=== PATIENT | male | born 1975 | race Caucasian/White ===

== ENCOUNTER 2025-01-30 13:04 | Observation (INO) | payer MEDICAID, SELFPAY ==
[2025-01-30 13:10] VITALS: BP 158/102; PULSE 89; RESP 20; TEMP 36.4; O2SAT 97
--- NOTE | 2025-01-30 13:34 | DI.CT_ITS ---
Exam(s) CT NECK W EXAM: CT NECK W INDICATION: severe abscess posterior neck. COMPARISON: No exams were available for comparison TECHNIQUE: FINDINGS: VISUALIZED PARANASAL SINUSES: There is a small defect in the medial wall of the left maxillary sinus possibly postsurgical. There is also mucosal thickening without a layering fluid level throughout the left maxillary sinus. There is a post inflammatory retention cyst in the right maxillary sinus. Also no fluid level therein. Sphenoid sinuses and frontal sinuses are clear. Mild opacification of a few ethmoidal air cells. NASOPHARYNX: Unremarkable ORODENTAL: Unremarkable. OROPHARYNX: Unremarkable. No masses evident. HYPOPHARYNX: Unremarkable. Valleculae and epiglottis and aryepiglottic folds appear normal. VOCAL CORDS: Unremarkable. No masses evident. Subglottic airway appears unremarkable. THYROID GLAND: Unremarkable. Normal size and no obvious nodules. SALIVARY GLANDS: Unremarkable. No significant findings in the parotid and submandibular glands. LYMPH NODES: Small regional lymph nodes but no gross lymphadenopathy. OTHER: There is a large peripherally enhancing abscess on the posterior right side of the neck at C2-3-4 level which extends from the sub dermis down through the entire subcutaneous layer and through the fascia to the muscular layer. This abscess measures 3 cm wide by 2.6 cm AP by 4.5 cm craniocaudal. Enhancing wall thickness is approximately 5-6 mm. There is no radiopaque foreign body in this region. VISUALIZED LUNG APICES: No significant findings. IMPRESSION: 1. Large abscess on the posterior right side of the neck as described above. This extends from the subdermal level down through to the subcutaneous fat and appears to involve the superficial aspect of the underlying musculature. There is no radiopaque foreign body evident Report called by myself to ER 01/30/2025 at 3:42 p.m. RADIATION DOSE DELIVERED: 310.94mGy.cm Total DLP DATA REPOSITORY: All CT scans at this facility are submitted to the National Radiology Data Registry (NRDR) Dose Index Registry (DIR) with the [employer] ([employer]). RADIATION OPTIMIZATION: All CT scans at this facility use at least one of these dose optimization techniques: automated exposure control; mA and/or kV adjustment per patient size (includes targeted exams where dose is matched to clinical indication); or iterative reconstruction.
[2025-01-30] MEDS: LORazepam 1 MG TAB PO (14:08)
[2025-01-30] MEDS: Lidocaine/Epinephri/Tetracaine Topical Gel 3 ML TP (14:08)
[2025-01-30 14:10] LABS: Abs Immature Grans 0.07 10^3/uL (0.0-0.06); HCT 38.8 % (40.0-50.0); HGB 12.7 g/dL (13.5-17.5); Immature Grans % 0.4 %; MCH 27.0 pg (27.0-33.0); MCHC 32.7 % (32.0-36.0); MCV 82 fL (80-95); MPV 8.9 fL (8.0-11.0); Platelet Count 353 10^3/uL (130-400); RBC 4.71 10^6/uL (4.36-5.78); RDW 14.0 % (11.8-14.1); RDW-SD 42.0 fL; WBC 19.25 10^3/uL (4.4-10.8)
[2025-01-30] MEDS: Normal Saline Flush 10 ML SYR IVP ×2 (14:13→16:33)
[2025-01-30] MEDS: Normal Saline - Diluent 50 ML VIAL IJ (14:13)
[2025-01-30] MEDS: Omnipaque 350 MG/ML 100 ML BTL IJ (14:13)
[2025-01-30] MEDS: VANCOMYCIN/WATER (PEG) 1.5 GM/300 ML BAG IVPB (14:16)
[2025-01-30 14:28] LABS: ALT 14 U/L (10-49); AST 17 U/L (<34); Albumin 4.5 g/dL (3.4-5.0); Alkaline Phosphatase 80 U/L (46-116); Anion Gap 9.3 mmol/L (3-11); BUN 16 mg/dL (9-23); Bilirubin, Total 0.60 mg/dL (0.2-1.2); CO2 26.7 mmol/L (20.0-31.0); Calcium 9.3 mg/dL (8.3-10.6); Chloride 106 mmol/L (98-107); Glucose 131 mg/dL (74-106); Potassium 3.4 mmol/L (3.5-5.1); Sodium 142 mmol/L (136-145); Total Protein 7.4 g/dL (5.7-8.2)
--- NOTE | 2025-01-30 14:39 | ED.GENADUL_ITS ---
Discharge Plan Disposition Patient Disposition: Admit to [facility] Condition: Serious Discharge Details Clinical Impression: Abscess, neck ED Provider: David Weber Home Meds and New Rx's Prescriptions: No Action No Known Home Meds HPI General Mode of arrival: ambulatory . Date/Time Provider Initiated Documentation: 01/30/25 13:21 . Limitations to Documentation: no limitations . Information obtained by: patient . HPI Narrative: HISTORY OF PRESENT ILLNESS 50-year-old male with neck abscess, first noticed 3 days ago, initially thought to be an ingrown hair. Abscess draining since yesterday. No known antibiotic allergies. History of childhood staphylococcal infection. No other medical conditions, including diabetes. Related Data Home Medications ?Medication ?Instructions ?Recorded ?Confirmed Unknown [No Known Home Meds] 01/30/25 1 04/01/24 General Stated Complaint: RashLesion SHASHI: 4 Review of Systems All systems reviewed & are unremarkable except as noted in HPI and below Constitutional Constitutional: Denies fever(s) Exam Const General: cooperative and no acute distress HENMT Mouth: moist mucous membranes Eyes Conjunctivae: normal conjunctivae Sclera: normal sclerae Neck Neck: full ROM Resp Auscultation: clear to auscultation bilaterally, no rales, no rhonchi and no wheezes Cardio Rate: regular rate and not tachycardic Rhythm: regular rhythm GI Palpation: soft, not firm, no guarding, no masses, not rigid and nontender Skin Other: Large abscess posterior right neck draining some pus Multiple excoriations/superficial ulcers on his hands Neuro General: patient alert, patient awake and tone normal Extrem General: no edema Course Vital Signs Vital signs: Vital Signs Temperature 36.4 C 01/30/25 13:10 Pulse 89 01/30/25 13:10 Respiratory Rate 20 01/30/25 13:10 Blood Pressure 158/102 H 01/30/25 13:10 Pulse Oximetry 97 01/30/25 13:10 Temperature 36.4 C 01/30/25 13:10 Temperature Source Tympanic 01/30/25 13:10 Pulse 89 01/30/25 13:10 Respiratory Rate 20 01/30/25 13:10 Blood Pressure 158/102 H 01/30/25 13:10 Blood Pressure Position Sitting 01/30/25 13:10 Pulse Oximetry 97 01/30/25 13:10 Oxygen Delivery Method Room Air 01/30/25 13:10 Oxygen Flow Rate 0 01/30/25 13:10 Pain Level 10 01/30/25 13:10 Comment Pt reports pain is pressure and is increasing. 01/30/25 13:10 Lab/Test Results Lab/Test Results: 01/30/25 13:54 Blood Blood Culture - Pending 01/30/25 13:26 Blood Blood Culture - Pending Laboratory Tests Range/Units 01/30/25 13:54 WBC (4.4-10.8) 10^3/uL 19.25 H RBC (4.36-5.78) 10^6/uL 4.71 Hgb (13.5-17.5) g/dL 12.7 L Hct (40.0-50.0) % 38.8 L MCV (80-95) fL 82 MCH (27.0-33.0) pg 27.0 MCHC (32.0-36.0) % 32.7 RDW (11.8-14.1) % 14.0 Plt Count (130-400) 10^3/uL 353 MPV (8.0-11.0) fL 8.9 Immature Gran % % 0.4 Neutrophils % % 77.9 Lymphocytes % % 12.1 Monocytes % % 7.4 Eosinophils % % 1.8 Basophils % % 0.4 Nucleated RBC % (0.0-0.3) % 0.0 Absolute Neutrophils (1.2-6.7) 10^3/uL 15.00 H Absolute Lymphocytes (1.2-3.4) 10^3/uL 2.33 Absolute Monocytes (0.1-0.8) 10^3/uL 1.42 H Absolute Eosinophils (0.0-0.7) 10^3/uL 0.35 Absolute Basophils (0.0-0.2) 10^3/uL 0.08 Sodium (136-145) mmol/L 142 Potassium (3.5-5.1) mmol/L 3.4 L Chloride (98-107) mmol/L 106 Carbon Dioxide (20.0-31.0) mmol/L 26.7 Anion Gap (3-11) mmol/L 9.3 BUN (9-23) mg/dL 16 Creatinine (0.73-1.18) mg/dL 0.7 L Est GFR (CKD-EPI 2020) (mL/min/1.73m2) 114.63 Glucose (74-106) mg/dL 131 H Calcium (8.3-10.6) mg/dL 9.3 Total Bilirubin (0.2-1.2) mg/dL 0.60 AST (<34) U/L 17 ALT (10-49) U/L 14 Alkaline Phosphatase (46-116) U/L 80 Total Protein (5.7-8.2) g/dL 7.4 Albumin (3.4-5.0) g/dL 4.5 Procedure Abscess Drainage Date of Procedure: 01/30/25 Time of Procedure: 15:29 Provider that performed the procedure: David Weber Patient Consented: Verbally Location of Exam: Neck/right side Ultrasound: Used/Image Saved Complications: None Procedure Description Note: 2 small incisions made superficially into areas of fluctuance, small purulent drainage Medical Decision Making ASSESSMENT AND PLAN 50-year-old male here with neck abscess. Patient is hypertensive. Afebrile. Patient has history of staph infections in the past. ED Course: -- Labs reviewed and significant leukocytosis of 19,000 noted. -- Vancomycin IV initiated. -- CT of the neck was interpreted by radiology: There is a large peripherally enhancing abscess on the posterior right side of the neck at C2-3-4 level which extends from the sub dermis down through the entire subcutaneous layer and through the fascia to the muscular layer. This abscess measures 3 cm wide by 2.6 cm AP by 4.5 cm craniocaudal. Enhancing wall thickness is approximately 5-6 mm. There is no radiopaque foreign body in this region. -- Incision and drainage performed under ultrasound guidance. No large focal collection. -- I spoke with the hospitalist, discussed ED presentation course, he will admit the patient for further diagnostics and treatment. Final Assessment: Neck abscess, significant size, minor drainage. Recommend hospitalization for IV antibiotics. Ultrasound for fluid assessment, incision planned if fluid detected. Numbing medicine applied, anxiety medication provided. Clinical Impression: Neck abscess. Disposition: Hospitalization for IV antibiotics. This document was written with the assistance of PRIYANK Almonte. The patient consented to its use. Lab Data Lab results reviewed: Yes I reviewed the patient's lab results. Labs: 01/30/25 14:51 Head - Back Wound Culture - Pending 01/30/25 14:51 Head - Back Gram Stain - Pending 01/30/25 13:54 Blood Blood Culture - Pending 01/30/25 13:26 Blood Blood Culture - Pending Laboratory Tests Range/Units 01/30/25 13:54 WBC (4.4-10.8) 10^3/uL 19.25 H RBC (4.36-5.78) 10^6/uL 4.71 Hgb (13.5-17.5) g/dL 12.7 L Hct (40.0-50.0) % 38.8 L MCV (80-95) fL 82 MCH (27.0-33.0) pg 27.0 MCHC (32.0-36.0) % 32.7 RDW (11.8-14.1) % 14.0 Plt Count (130-400) 10^3/uL 353 MPV (8.0-11.0) fL 8.9 Immature Gran % % 0.4 Neutrophils % % 77.9 Lymphocytes % % 12.1 Monocytes % % 7.4 Eosinophils % % 1.8 Basophils % % 0.4 Nucleated RBC % (0.0-0.3) % 0.0 Absolute Neutrophils (1.2-6.7) 10^3/uL 15.00 H Absolute Lymphocytes (1.2-3.4) 10^3/uL 2.33 Absolute Monocytes (0.1-0.8) 10^3/uL 1.42 H Absolute Eosinophils (0.0-0.7) 10^3/uL 0.35 Absolute Basophils (0.0-0.2) 10^3/uL 0.08 Sodium (136-145) mmol/L 142 Potassium (3.5-5.1) mmol/L 3.4 L Chloride (98-107) mmol/L 106 Carbon Dioxide (20.0-31.0) mmol/L 26.7 Anion Gap (3-11) mmol/L 9.3 BUN (9-23) mg/dL 16 Creatinine (0.73-1.18) mg/dL 0.7 L Est GFR (CKD-EPI 2020) (mL/min/1.73m2) 114.63 Glucose (74-106) mg/dL 131 H Calcium (8.3-10.6) mg/dL 9.3 Total Bilirubin (0.2-1.2) mg/dL 0.60 AST (<34) U/L 17 ALT (10-49) U/L 14 Alkaline Phosphatase (46-116) U/L 80 Total Protein (5.7-8.2) g/dL 7.4 Albumin (3.4-5.0) g/dL 4.5 PFSH All Active Problems (Updated 01/30/25 @ 14:57 by David Weber MD) Abscess, neck (Acute) Social History Smoking/Tobacco Use Status: Current every day Tobacco Type: cigarettes Years smoked: 30 Tobacco: How many years used: 30 Smoking risk assessment performed?: Yes Alcohol Intake: former Drug use: Occasionally Substance use type: marijuana and crack/cocaine Details: Reports last use of cocaine was a few days ago and marijuana was about 2 weeks ago POCUS Exam (ED) Limited Soft Tissue Exam DATE OF EXAM: 01/30/25 TIME OF EXAM: 15:28 PROVIDER THAT PERFORMED THE STUDY: David Weber IS THIS A REPEAT EXAM DURING THIS ENCOUNTER: No LOCATION OF EXAM: Neck/right side REASON FOR EXAM: Abscess VISUALIZED STRUCTURES: Skin and Subcutaneous tissue PERTINENT FINDINGS/IMPRESSION: Abscess rt neck posteriorly . Exam Complete DIFFERENTIAL DIAGNOSES: abscess
[2025-01-30 14:49] VITALS: BP 181/90; PULSE 89; TEMP 34.5; O2SAT 95
--- NOTE | 2025-01-30 15:09 | DI.VRAD_ITS ---
PROCEDURE INFORMATION: Exam: CT Neck With Contrast Exam date and time: 01/30/2025 2:15 PM Age: 50 years old Clinical indication: Other: Severe abscess posterior neck TECHNIQUE: Imaging protocol: Computed tomography of the neck with contrast. Contrast material: OMNIPAQUE 350; Contrast volume: 100 ml; Contrast route: INTRAVENOUS (IV); COMPARISON: No relevant prior studies available. FINDINGS: Paranasal sinuses: There are retention cysts in the maxillary sinus bilaterally with moderate left-sided mucoperiosteal thickening. Salivary glands: Normal. Glands are normal in size. Pharynx: Unremarkable. No significant tonsillar enlargement. Larynx: Unremarkable. Epiglottis is normal. Thyroid: Normal. No enlarged or calcified nodules. Trachea: Visualized trachea is unremarkable. Lungs: Unremarkable as visualized. Lymph nodes: Unremarkable. No lymphadenopathy. Bones/joints: Unremarkable. No acute fracture. Soft tissues: At the C2-4 level in the right posterior subcutaneous tissues there is a thick-walled peripherally enhancing low-density lobular collection measuring 2.7 x 1.9 x 2.8 cm. There is adjacent induration and soft tissue stranding with skin thickening. Appearance is consistent with subcutaneous abscess. Necrotic neoplasm would be less likely consideration. The collection abuts the paraspinous musculature without definite involvement. IMPRESSION: Right posterior neck superficial abscess. No additional acute abnormality seen. Dictated and Authenticated by: Mora Peace MD. Orderin Tia Hernandez MD
--- NOTE | 2025-01-30 15:51 | HPE_ITS ---
Date of service: 01/30/25 Time of Service: 15:51 Assessment and Plan Assessment and plan (1) Abscess, neck: Status: Acute Assessment and plan: Neck abscess (significant size, minor drainage) Plan: * Observation on medical floor on hospitalist service for IV antibiotics (Vancomycin initiated in ED) * Monitor for sepsis, ongoing drainage, pain control, and hypertension * Ultrasound for fluid reassessment; repeat incision if collection persists; surgical consult * Labs: blood cultures, wound cultures pending * Supportive care and anxiety management as needed (2) Nicotine addiction: Status: Acute Assessment and plan: 30 years Offer nicotine patch (3) Crack cocaine use: Status: Acute Assessment and plan: Last use a few days ago (4) Marijuana abuse: Status: Acute Assessment and plan: Last use 2 weeks ago History of Present Illness History of Present Illness Chief Complaint: Posterior neck pain; bump for 3 days Narrative: 50-year-old male presents with a neck abscess, first noticed 3 days ago, initially thought to be an ingrown hair. The abscess has been draining since yesterday. He has no known antibiotic allergies and a history of childhood staphylococcal infections. No history of diabetes or other chronic medical conditions. Patient arrived ambulatory, denies fever, and reports increasing pressure pain (12/24). In ED: Laboratory Data: * WBC 19.25 leukocytosis * Hgb 12.7, Hct 38.8 * K 3.4 mild hypokalemia * Glucose 131 * Other labs largely unremarkable * Blood cultures pending * Wound culture and Gram stain pending Imaging: * CT neck: Large posterior right neck abscess at C2?C4, 3 ? 2.6 ? 4.5 cm, extends subcutaneously and through fascia to muscle, no foreign body Procedures: * Ultrasound-guided incision and drainage performed with two small superficial incisions; small purulent drainage; no complications Placed on observation status on the medical floor for further testing and treatment. Will consult surgery 01/31 Patient agrees with plan of care. Patient is a full code. Review of Systems Narrative: Constitutional: Denies fever, otherwise unremarkable. All other systems: Unremarkable except for findings noted in HPI. PFSH All Active Problems (Updated 01/30/25 @ 15:58 by Leslie Ortiz NP) Marijuana abuse (Acute) Crack cocaine use (Acute) Nicotine addiction (Acute) Abscess, neck (Acute) Social History Smoking/Tobacco Use Status: Current every day Tobacco Type: cigarettes Years smoked: 30 Tobacco: How many years used: 30 Smoking risk assessment performed?: Yes Alcohol Intake: former Drug use: Occasionally Substance use type: marijuana and crack/cocaine Details: Reports last use of cocaine was a few days ago and marijuana was about 2 weeks ago Meds Allergies and Home Medications Home Medications ?Medication ?Instructions ?Recorded ?Confirmed ?Type Unknown [No Known Home Meds] 01/30/25 1 04/01/24 History Exam Narrative Exam Narrative: General: Cooperative, no acute distress Neck: Full range of motion; large posterior right neck abscess draining pus Skin: Multiple excoriations/superficial ulcers on hands Respiratory: Clear bilaterally, no rales, rhonchi, or wheezes Cardiac: Regular rate and rhythm GI: Soft, non-tender, non-distended Neuro: Alert, normal tone Extremities: No edema Results Labs 01/30/25 13:54 01/30/25 13:54 Labs: Laboratory Results - last 24 hr 01/30/25 13:54 WBC 19.25 H RBC 4.71 Hgb 12.7 L Hct 38.8 L MCV 82 MCH 27.0 MCHC 32.7 RDW 14.0 Plt Count 353 MPV 8.9 Immature Gran % 0.4 Neutrophils % 77.9 Lymphocytes % 12.1 Monocytes % 7.4 Eosinophils % 1.8 Basophils % 0.4 Nucleated RBC % 0.0 Absolute Neutrophils 15.00 H Absolute Lymphocytes 2.33 Absolute Monocytes 1.42 H Absolute Eosinophils 0.35 Absolute Basophils 0.08 Sodium 142 Potassium 3.4 L Chloride 106 Carbon Dioxide 26.7 Anion Gap 9.3 BUN 16 Creatinine 0.7 L Est GFR (CKD-EPI 2020) 114.63 Glucose 131 H Calcium 9.3 Total Bilirubin 0.60 AST 17 ALT 14 Alkaline Phosphatase 80 Total Protein 7.4 Albumin 4.5 Last Vital Signs Temp 34.5 C L 01/30/25 14:49 Pulse 89 01/30/25 14:49 Resp 20 01/30/25 13:10 BP 181/90 H 01/30/25 14:49 Pulse Ox 95 01/30/25 14:49 Time Spent Time spent with Patient: 40-54 minutes Time was spent: preparing to see the patient(eg.review tests), obtaining and/or reviewing separately otained hiistory, ordering medications,tests, procedures, referring, communicating with other health memory care program resident, indepentently interpreting results, counseling the patient and care coordination
--- NOTE | 2025-01-30 16:13 | W.PC.ACHO ---
Registration Status: REG ER Primary Language: Preferred Language: ED Information & Data Chief Complaint RashLesion 01/30/25 14:44 Triage Note Pt noted what he thought was 01/30/25 13:10 an ingrown hair on the back of his neck 4 days ago and yesterday it began getting larger and more painful. Pt reports a friend attempted to pop it yesterday, it did open with some fluid coming out. Most Recent Vital Signs Temperature 34.5 C L 01/30/25 14:49 Temperature Source Oral 01/30/25 14:49 Pulse 89 01/30/25 14:49 Respiratory Rate 20 01/30/25 13:10 Blood Pressure 181/90 H 01/30/25 14:49 Blood Pressure Mean 120 01/30/25 14:49 Blood Pressure Position Sitting 01/30/25 13:10 Pulse Oximetry 95 01/30/25 14:49 Oxygen Delivery Method Room Air 01/30/25 14:49 Oxygen Flow Rate 0 01/30/25 14:49 Pain Level 10 01/30/25 13:10 Comment Pt reports pain is pressure and is increasing. 01/30/25 13:10 Allergies No Known Allergies Allergy (Unverified 01/30/25 16:07) Precautions Isolation Standard precaution 01/30/25 13:16 Active Medications Generic Name Dose Route Start Last Admin Trade Name Christy PRN Reason Stop Dose Admin Iohexol 100 ml 01/30/25 14:15 01/30/25 14:13 Omnipaque 350 Mg/Ml 100 Ml Btl IJ 03/01/25 23:59 100 ml DIRECTED JULIUS Administration Sodium Chloride 0 ml 01/30/25 14:12 01/30/25 14:13 Normal Saline Flush 10 Ml Syr IVP 10 ml PRN PRN Administration Sodium Chloride 50 ml 01/30/25 14:15 01/30/25 14:13 Normal Saline - Diluent 50 Ml Vial IJ 50 ml DIRECTED JULIUS Administration IV IV Catheter Type [Right Peripheral IV Antecubital] IV Catheter Gauge [Right 18 Antecubital] Diagnostics 01/30/25 Range/Units 13:54 WBC 19.25 H (4.4-10.8) 10^3/uL RBC 4.71 (4.36-5.78) 10^6/uL Hgb 12.7 L (13.5-17.5) g/dL Hct 38.8 L (40.0-50.0) % MCV 82 (80-95) fL MCH 27.0 (27.0-33.0) pg MCHC 32.7 (32.0-36.0) % RDW 14.0 (11.8-14.1) % Plt Count 353 (130-400) 10^3/uL MPV 8.9 (8.0-11.0) fL Immature Gran % 0.4 % Neutrophils % 77.9 % Lymphocytes % 12.1 % Monocytes % 7.4 % Eosinophils % 1.8 % Basophils % 0.4 % Nucleated RBC % 0.0 (0.0-0.3) % Absolute Neutrophils 15.00 H (1.2-6.7) 10^3/uL Absolute Lymphocytes 2.33 (1.2-3.4) 10^3/uL Absolute Monocytes 1.42 H (0.1-0.8) 10^3/uL Absolute Eosinophils 0.35 (0.0-0.7) 10^3/uL Absolute Basophils 0.08 (0.0-0.2) 10^3/uL Sodium 142 (136-145) mmol/L Potassium 3.4 L (3.5-5.1) mmol/L Chloride 106 (98-107) mmol/L Carbon Dioxide 26.7 (20.0-31.0) mmol/L Anion Gap 9.3 (3-11) mmol/L BUN 16 (9-23) mg/dL Creatinine 0.7 L (0.73-1.18) mg/dL Est GFR (CKD-EPI 2020) 114.63 (mL/min/1.73m2) Glucose 131 H (74-106) mg/dL Calcium 9.3 (8.3-10.6) mg/dL Total Bilirubin 0.60 (0.2-1.2) mg/dL AST 17 (<34) U/L ALT 14 (10-49) U/L Alkaline Phosphatase 80 (46-116) U/L Total Protein 7.4 (5.7-8.2) g/dL Albumin 4.5 (3.4-5.0) g/dL 01/30/25 14:10 Wound Culture - Pending Head - Back Gram Stain - Final 01/30/25 13:54 Blood Culture - Pending Blood 01/30/25 13:26 Blood Culture - Pending Blood Intake and Output - 24 Hour Total 01/30/25 13:04 thru 01/30/25 16:00 Intake Total 300 Balance 300 Weight 79.379 kg Intake: IV 300 Falls Risk Assessment History of Falls No History 01/30/25 13:16 Contributing Factors No Factors 01/30/25 13:16 Ambulatory Aids Independent 01/30/25 13:16 Tubes/Lines None 01/30/25 13:16 Gait Evaluation No gait disturbance 01/30/25 13:16 Cognition No cognitive impairment 01/30/25 13:16 Fall Total Score 0 01/30/25 13:16 Level of Risk Standard/Low Risk 01/30/25 13:16 Problems (Last Reviewed 01/30/25 @ 14:41 by David Weber MD) Marijuana abuse (Acute) Crack cocaine use (Acute) Nicotine addiction (Acute) Abscess, neck (Acute) Attestation Statement: By documenting the first initial, last name, and credentials of the reporting nurse below, both parties acknowledge that all relevant information regarding the patient handoff has been communicated, and that all questions have been addressed to ensure continuity and safety of care. Additional Patient Information/Comments: pt going to room 231. All questions answered. Report Received From: report from HAYDEE Stewart @ [id number]
[2025-01-30 16:20] VITALS: BP 172/94; PULSE 80; RESP 18; TEMP 37; O2SAT 98
[2025-01-30] MEDS: Acetaminophen 325 MG TAB 650 MG PO (16:33)
[2025-01-30] MEDS: Ketorolac 15 MG/ML VIAL IVP (17:57)
[2025-01-30 18:19] LABS: Cannabinoids THC Negative (Negative)
[2025-01-30 20:22] VITALS: BP 130/63; PULSE 70; RESP 15; TEMP 37.2; O2SAT 98
[2025-01-31 04:24] LABS: Vancomycin, Random 4.2 ug/mL
[2025-01-31 04:26] VITALS: BP 161/95; PULSE 76; RESP 16; TEMP 37.2; O2SAT 98
[2025-01-31] MEDS: VANCOMYCIN 1,000 MG in Normal Saline 250 ML 166.6666 MG IVPB (05:40)
[2025-01-31] MEDS: Water,Injection,Sterile 10 ML VIAL (05:46)
[2025-01-31] MEDS: Acetaminophen 325 MG TAB 650 MG PO (06:56)
[2025-01-31] MEDS: Ketorolac 15 MG/ML VIAL IVP ×2 (06:57→16:07)
[2025-01-31] MEDS: Normal Saline Flush 10 ML SYR IVP ×4 (06:58→21:46)
[2025-01-31 07:59] VITALS: BP 119/80; PULSE 71; RESP 17; TEMP 36.8; O2SAT 97
[2025-01-31 09:29] LABS: Abs Immature Grans 0.05 10^3/uL (0.0-0.06); HCT 36.6 % (40.0-50.0); HGB 12.1 g/dL (13.5-17.5); Immature Grans % 0.3 %; MCH 27.3 pg (27.0-33.0); MCHC 33.1 % (32.0-36.0); MCV 82 fL (80-95); MPV 8.8 fL (8.0-11.0); Platelet Count 329 10^3/uL (130-400); RBC 4.44 10^6/uL (4.36-5.78); RDW 13.7 % (11.8-14.1); RDW-SD 41.3 fL; WBC 14.29 10^3/uL (4.4-10.8)
[2025-01-31 09:48] LABS: C-Reactive Protein 4.07 mg/dL (<=0.50)
[2025-01-31 09:50] LABS: ALT 9 U/L (10-49); AST 12 U/L (<34); Albumin 3.7 g/dL (3.4-5.0); Alkaline Phosphatase 66 U/L (46-116); Anion Gap 7.3 mmol/L (3-11); BUN 14 mg/dL (9-23); Bilirubin, Total 0.50 mg/dL (0.2-1.2); CO2 24.7 mmol/L (20.0-31.0); Calcium 8.5 mg/dL (8.3-10.6); Chloride 107 mmol/L (98-107); Glucose 100 mg/dL (74-106); Potassium 3.8 mmol/L (3.5-5.1); Sodium 139 mmol/L (136-145); Total Protein 6.2 g/dL (5.7-8.2)
[2025-01-31 12:08] VITALS: BP 141/97; PULSE 66; RESP 17; TEMP 36.4; O2SAT 97
--- NOTE | 2025-01-31 12:22 | W.NUTRFU ---
Date of service: 01/31/25 Time of Service: 12:22 Nutrition Note NOTE: Pt chart reviewed and initially assessed as lower acute nutrition risk. Tolerating regular diet - will be npo at midnight to address neck abscess in morning for sugical intervention (I&D). Will monitor diet toleration, nutrition related labs, po intake. Kitchen staff to get meal preferences and support with a variety of healthy food options. Time Spent in Nutritional Counseling and Treatment: 0
--- NOTE | 2025-01-31 13:03 | PDOC.CMIN ---
Date of service: 01/31/25 Time of Service: 13:03 Care Management Initial Assmt Initial Assessment Reason for Hospitalization: abscess of the neck Functional Status/Living Situation Patient Presentation: Lj presented to the ED yesterday afternoon with c/o a neck abscess that he first noticed 3 days ago, thinking it was an ingrown hair. It started draining 2 days ago, and he presented tot he ED yesterday. Surgery consult was done and Bryan will go to the OR tomorrow morning for incision and drainage. He is presently on IV vancomycin for his infection, and both blood and wound cultures are pending. Bryan was sitting up in the bed, watching TV, when CM met with him today. He was very pleasant and polite with CM. He stated that his neck is very sore, and he is mad at himself for letting it get this bad. He is also mad at himself for letting his life go the way it has. Bryan is living in a camper. 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 He lost custody of his kid. Bryan has no health insurance. [facility] was contacted on Bryan's behalf, and he was also given the patient assistance packet. Bryan was very appreciative of this help. Bryan has no PCP listed, but he does see Adilson Montejo at [facility] in [place]. It was confirmed by CM that Bryan is an active patient there, although he has not been there in a bit. This info was relayed to Bryan, and he was very strongly encouraged to f/u with that office. He assured CM he would f/u, I don't want to end up like this again. Bryan will likely need help with wound care, as he will not be able to have home health services due to not having insurance. He is actively trying to recruit some help from friends for this job. Town of Residence: [place] Resides with: Alone (alone) Significant Other/Family: Local (brother, Adam, daughter, Lana, friend Kevon) Natural Supports: best support is his friend Kevon Employment Status: Unemployed Instrumental Activities of Daily Living (ADLs): Independent Medications Medication Management: No Issues/Barriers identified Advance Directives Advance Directives: Do you have an Advance Directive: AD On File at [facility]: N Today, 04:49 Date Asked 01/30/25 01/30/25, 13:24 AD Date Reviewed COLST On File at [facility] COLST Date Scanned Code Status Resuscitation Status Full Code Insurance Coverage/Financial Issues Insurance: self pay - see above Care Team Visit Care Team Role Provider Type Leslie Ortiz NP MD [facility] STAFF PHYSICIAN Unknown Unknown Primary Care Provider STAFF PHYSICIAN Afshin Du MD Other Providers [facility] STAFF PHYSICIAN David Weber MD Emergency Provider [facility] STAFF PHYSICIAN Reggie Troncoso Admit Provider [facility] STAFF PHYSICIAN Attending Provider Other: PCP is Adilson Montejo MD at [facility] in [place], [place] [phone] Discharge Potential Discharge Needs: PCP F/U Appt, Surgical F/U Appt and Other (wound care supplies) Anticipated Barriers to Discharge: None Identified Patient/Family Education Needs: Review discharge instructions, discuss Ask Me Three Transportation: Private vehicle Plan: Bryan will be going to the OR tomorrow for incision and drainage of his neck abscess. He is hoping to be discharge tomorrow after the surgery. Bryan will need to f/u with his PCP and the surgeon. He will require help with wound care, as he is unable to visualize the site, and he believes his friend will do that. Bryan will continue per his plan of care and transport home with a friend. CM will continue to follow. Social Determinants of Health Screening Will the Patient Participate in the Screening?: Declined to provide PFSH All Active Problems (Updated 01/30/25 @ 15:58 by Leslie Ortiz NP) Marijuana abuse (Acute) Crack cocaine use (Acute) Nicotine addiction (Acute) Abscess, neck (Acute) Social History Smoking/Tobacco Use Status: Current every day Tobacco Type: cigarettes Years smoked: 30 Tobacco: How many years used: 30 Smoking risk assessment performed?: Yes Alcohol Intake: former Drug use: Occasionally Substance use type: marijuana and crack/cocaine Details: Reports last use of cocaine was a few days ago and marijuana was about 2 weeks ago Housing: other
--- NOTE | 2025-01-31 13:08 | W.SURGCON ---
Date of service: 01/31/25 Time of Service: 10:30 Assessment and Plan Assessment and plan (1) Abscess, neck: Status: Acute Assessment and plan: There is a soft tissue infection at the base of the right neck that seems consistent with an abscess. It does not appear to be adequately drained at this time. Although his decreasing leukocytosis is reassuring, I think this would benefit from incision and drainage with operative debridement. Will make arrangements for the operating room tomorrow History of Present Illness History of Present Illness Chief Complaint: Neck abscess Narrative: Lj is 50 years old. He came to the emergency department complaining of swelling and drainage from the posterior right neck. He thinks it first noticed it a few days ago, and attributed to an ingrown hair. It became more painful, and he tried to have a friend drain it out. As best he can recall, nothing actually came out of it. He went to the emergency department yesterday, where he was found to have a leukocytosis around 20,000. He underwent a CT scan of the neck that demonstrated a 4-1/2 x 3 cm abscess extending down to the muscular layer. He underwent attempted ultrasound-guided drainage of the abscess in the emergency department. He recalls that this was quite painful. Has been feeling a little bit better since he has been admitted. He is already started on vancomycin for his soft tissue infection. He tells me he does not have any other significant medical history. He has never had any other skin abscesses. Review of Systems Constitutional Constitutional: Denies fatigue, Denies fever(s), Denies weakness and Denies weight loss Eyes Eyes: Reports system reviewed and no additional complaints, except as documented ENT Ears, Nose, Mouth, and Throat: Reports system reviewed and no additional complaints, except as documented Cardiovascular Cardiovascular: Denies chest pain and Denies dyspnea Respiratory Respiratory: Denies chest congestion, Reports cough and Denies dyspnea Gastrointestinal Gastrointestinal: Reports system reviewed and no additional complaints, except as documented Genitourinary Genitourinary: Reports system reviewed and no additional complaints, except as documented Neurologic Neurologic: Denies weakness Endocrine Endocrine: Denies fatigue Hematologic/Lymphatic Hematologic/Lymphatic: Denies easy bleeding and Denies easy bruising PFSH All Active Problems (Updated 01/30/25 @ 15:58 by Leslie Ortiz NP) Marijuana abuse (Acute) Crack cocaine use (Acute) Nicotine addiction (Acute) Abscess, neck (Acute) Social History Smoking/Tobacco Use Status: Current every day Tobacco Type: cigarettes Years smoked: 30 Tobacco: How many years used: 30 Smoking risk assessment performed?: Yes Alcohol Intake: former Drug use: Occasionally Substance use type: marijuana and crack/cocaine Details: Reports last use of cocaine was a few days ago and marijuana was about 2 weeks ago Housing: other Exam Const General: cooperative, comfortable and no acute distress Orientation: alert, awake and oriented x3 HENMT Head: normal to inspection Head images:  1. Erythema with purulent drainage Eyes General: appearance normal, both eyes and all related structures Neck Neck: full ROM and lymphadenopathy noted Resp Effort & Inspection: normal respiratory effort, able to speak in complete sentences and no cough Cardio Rate: regular rate Rhythm: regular rhythm Heart Sounds: S1 normal and S2 normal Results Last Vital Signs Temp 97.5 F L 01/31/25 12:08 Pulse 66 01/31/25 12:08 Resp 17 01/31/25 12:08 BP 141/97 H 01/31/25 12:08 Pulse Ox 97 01/31/25 12:08 Labs 01/31/25 09:11 01/31/25 09:11 Labs: Laboratory Results - last 24 hr 01/30/25 01/30/25 01/31/25 13:54 14:55 04:00 WBC 19.25 H RBC 4.71 Hgb 12.7 L Hct 38.8 L MCV 82 MCH 27.0 MCHC 32.7 RDW 14.0 Plt Count 353 MPV 8.9 Immature Gran % 0.4 Neutrophils % 77.9 Lymphocytes % 12.1 Monocytes % 7.4 Eosinophils % 1.8 Basophils % 0.4 Nucleated RBC % 0.0 Absolute Neutrophils 15.00 H Absolute Lymphocytes 2.33 Absolute Monocytes 1.42 H Absolute Eosinophils 0.35 Absolute Basophils 0.08 Sodium 142 Potassium 3.4 L Chloride 106 Carbon Dioxide 26.7 Anion Gap 9.3 BUN 16 Creatinine 0.7 L Est GFR (CKD-EPI 2020) 114.63 Glucose 131 H Calcium 9.3 Total Bilirubin 0.60 AST 17 ALT 14 Alkaline Phosphatase 80 C-Reactive Protein Total Protein 7.4 Albumin 4.5 Random Vancomycin 4.2 Urine Opiates Screen Negative Urine Methadone Screen Negative Ur Barbiturates Screen Negative Ur Tricyclics Screen Negative Ur Amphetamines Screen Negative U Benzodiazepines Scrn Negative Urine Cocaine Screen Positive A U Cannabinoids Screen Negative 01/31/25 01/31/25 01/31/25 09:11 09:11 09:11 WBC 14.29 H RBC 4.44 Hgb 12.1 L Hct 36.6 L MCV 82 MCH 27.3 MCHC 33.1 RDW 13.7 Plt Count 329 MPV 8.8 Immature Gran % 0.3 Neutrophils % 67.4 Lymphocytes % 19.0 Monocytes % 9.9 Eosinophils % 3.0 Basophils % 0.4 Nucleated RBC % 0.0 Absolute Neutrophils 9.63 H Absolute Lymphocytes 2.72 Absolute Monocytes 1.41 H Absolute Eosinophils 0.43 Absolute Basophils 0.06 Sodium 139 Cancelled Potassium 3.8 Cancelled Chloride 107 Carbon Dioxide Anion Gap BUN Creatinine Est GFR (CKD-EPI 2020) Glucose Calcium Total Bilirubin AST ALT Alkaline Phosphatase C-Reactive Protein Total Protein Albumin Random Vancomycin Urine Opiates Screen Urine Methadone Screen Ur Barbiturates Screen Ur Tricyclics Screen Ur Amphetamines Screen U Benzodiazepines Scrn Urine Cocaine Screen U Cannabinoids Screen 01/31/25 01/31/25 01/31/25 09:11 09:11 09:11 WBC RBC Hgb Hct MCV MCH MCHC RDW Plt Count MPV Immature Gran % Neutrophils % Lymphocytes % Monocytes % Eosinophils % Basophils % Nucleated RBC % Absolute Neutrophils Absolute Lymphocytes Absolute Monocytes Absolute Eosinophils Absolute Basophils Sodium Potassium Chloride Cancelled Carbon Dioxide 24.7 Cancelled Anion Gap 7.3 Cancelled BUN 14 Creatinine Est GFR (CKD-EPI 2020) Glucose Calcium Total Bilirubin AST ALT Alkaline Phosphatase C-Reactive Protein Total Protein Albumin Random Vancomycin Urine Opiates Screen Urine Methadone Screen Ur Barbiturates Screen Ur Tricyclics Screen Ur Amphetamines Screen U Benzodiazepines Scrn Urine Cocaine Screen U Cannabinoids Screen 01/31/25 01/31/25 01/31/25 09:11 09:11 09:11 WBC RBC Hgb Hct MCV MCH MCHC RDW Plt Count MPV Immature Gran % Neutrophils % Lymphocytes % Monocytes % Eosinophils % Basophils % Nucleated RBC % Absolute Neutrophils Absolute Lymphocytes Absolute Monocytes Absolute Eosinophils Absolute Basophils Sodium Potassium Chloride Carbon Dioxide Anion Gap BUN Cancelled Creatinine 0.8 Cancelled Est GFR (CKD-EPI 2020) 101.50 Cancelled Glucose 100 Calcium Total Bilirubin AST ALT Alkaline Phosphatase C-Reactive Protein Total Protein Albumin Random Vancomycin Urine Opiates Screen Urine Methadone Screen Ur Barbiturates Screen Ur Tricyclics Screen Ur Amphetamines Screen U Benzodiazepines Scrn Urine Cocaine Screen U Cannabinoids Screen 01/31/25 01/31/25 01/31/25 09:11 09:11 09:11 WBC RBC Hgb Hct MCV MCH MCHC RDW Plt Count MPV Immature Gran % Neutrophils % Lymphocytes % Monocytes % Eosinophils % Basophils % Nucleated RBC % Absolute Neutrophils Absolute Lymphocytes Absolute Monocytes Absolute Eosinophils Absolute Basophils Sodium Potassium Chloride Carbon Dioxide Anion Gap BUN Creatinine Est GFR (CKD-EPI 2020) Glucose Cancelled Calcium 8.5 Cancelled Total Bilirubin 0.50 Cancelled AST 12 ALT Alkaline Phosphatase C-Reactive Protein Total Protein Albumin Random Vancomycin Urine Opiates Screen Urine Methadone Screen Ur Barbiturates Screen Ur Tricyclics Screen Ur Amphetamines Screen U Benzodiazepines Scrn Urine Cocaine Screen U Cannabinoids Screen 01/31/25 01/31/25 01/31/25 09:11 09:11 09:11 WBC RBC Hgb Hct MCV MCH MCHC RDW Plt Count MPV Immature Gran % Neutrophils % Lymphocytes % Monocytes % Eosinophils % Basophils % Nucleated RBC % Absolute Neutrophils Absolute Lymphocytes Absolute Monocytes Absolute Eosinophils Absolute Basophils Sodium Potassium Chloride Carbon Dioxide Anion Gap BUN Creatinine Est GFR (CKD-EPI 2020) Glucose Calcium Total Bilirubin AST Cancelled ALT 9 L Cancelled Alkaline Phosphatase 66 Cancelled C-Reactive Protein 4.07 H Total Protein 6.2 Albumin Random Vancomycin Urine Opiates Screen Urine Methadone Screen Ur Barbiturates Screen Ur Tricyclics Screen Ur Amphetamines Screen U Benzodiazepines Scrn Urine Cocaine Screen U Cannabinoids Screen 01/31/25 01/31/25 09:11 09:11 WBC RBC Hgb Hct MCV MCH MCHC RDW Plt Count MPV Immature Gran % Neutrophils % Lymphocytes % Monocytes % Eosinophils % Basophils % Nucleated RBC % Absolute Neutrophils Absolute Lymphocytes Absolute Monocytes Absolute Eosinophils Absolute Basophils Sodium Potassium Chloride Carbon Dioxide Anion Gap BUN Creatinine Est GFR (CKD-EPI 2020) Glucose Calcium Total Bilirubin AST ALT Alkaline Phosphatase C-Reactive Protein Total Protein Cancelled Albumin 3.7 Cancelled Random Vancomycin Urine Opiates Screen Urine Methadone Screen Ur Barbiturates Screen Ur Tricyclics Screen Ur Amphetamines Screen U Benzodiazepines Scrn Urine Cocaine Screen U Cannabinoids Screen Imaging Imaging Studies: CT scan of the neck -report and images reviewed by me
--- NOTE | 2025-01-31 13:37 | PHA.REVIEW2 ---
Pharmacy Admission Review Admission Clinical Review Admission Pharmacy Review: Marijuana abuse (Acute) Crack cocaine use (Acute) Nicotine addiction (Acute) Abscess, neck (Acute) No Known Allergies Allergy (Unverified 01/30/25 16:07) Resuscitation Status Full Code Height 5 ft 10 in Weight 79.379 kg Pharmacy Admission Review Renal Dosing Renal Dosing: BUN 14 mg/dL (9-23) 01/31/25 09:11 BUN Cancelled 01/31/25 09:11 Creatinine 0.8 mg/dL (0.73-1.18) 01/31/25 09:11 Creatinine Cancelled 01/31/25 09:11 Medications needing adjustments: Reviewed (None of the patient's medications need renal dosing adjustments since Crcl >100 with Scr at 0.8mg/dL) Anticoagulation Anticoagulation: Hgb 12.1 g/dL (13.5-17.5) L 01/31/25 09:11 Hct 36.6 % (40.0-50.0) L 01/31/25 09:11 Plt Count 329 10^3/uL (130-400) 01/31/25 09:11 Creatinine 0.8 mg/dL (0.73-1.18) 01/31/25 09:11 Creatinine Cancelled 01/31/25 09:11 DVT Prophylaxis: Reviewed (Patient can self ambulate without difficulty, currently not at risk of DVT. Will need prophylaxis if that changes) Opiate Usage Evaluate Pain Scale/Pains Meds: Reviewed (Level of pain for this patient has reduced from 5 to 2 since yesterday being managed with toradol, no opiates) Relevant Labs Relevant Labs: Sodium 139 mmol/L (136-145) 01/31/25 09:11 Sodium Cancelled 01/31/25 09:11 Potassium 3.8 mmol/L (3.5-5.1) 01/31/25 09:11 Potassium Cancelled 01/31/25 09:11 Chloride 107 mmol/L (98-107) 01/31/25 09:11 Chloride Cancelled 01/31/25 09:11 C-Reactive Protein 4.07 mg/dL (<=0.50) H 01/31/25 09:11 Electrolytes, C-Reactive P, ESR: Reviewed (Electrolytes have improved and currently within normal limits) DM Control DM Control: Reviewed (No record of DM reported in patient's H&P) Cardiac Review Cardiac Review: Blood Pressure 141/97 Blood Pressure 119/80 Blood Pressure 161/95 BP, HR, EF%: Reviewed (Blood pressure still fluctuating, needs monitoring) QTc Review QTc: Reviewed (No EKG or QTc results reported ) Current Meds Current Medication Order Review: Reviewed (No known home medications for this patients per medication rec as of 01/31) Pharmacy Antibiotic Review Relevant Labs: Relevant Labs 01/31/25 09:11 C-Reactive Protein 4.07 H Pharmacy Antibiotic Activity: Abx regimen adjustment and C/S review (Patient started vancomycin from the ED with a 1.5g loading dose. Scheduled maintenance dose per [facility] is 1g every 8 hours with trough monitoring. Preliminary wound culture reported MRSA, trough level ordered before 4th dose tomorrow morning and dosing will be adjusted per level received.)
[2025-01-31] MEDS: VANCOMYCIN/WATER (PEG) 1 GM/200 ML BAG IVPB ×2 (14:59→21:45)
[2025-01-31 15:16] VITALS: BP 158/98; PULSE 68; RESP 16; TEMP 36.9; O2SAT 98
[2025-01-31] MEDS: LORazepam 20 MG/10 ML VIAL IVP (15:38)
[2025-01-31] MEDS: Nicotine 21 MG/24 HR PATCH TD (15:38)
--- NOTE | 2025-01-31 16:16 | PGE_ITS ---
Date of Service Date of service: 01/31/25 Time of Service: 16:16 Assessment and Plan Assessment and plan (1) Abscess, neck: Status: Acute Assessment and plan: Neck abscess (significant size, minor drainage) Plan: * Observation on medical floor on hospitalist service for IV antibiotics - continue Vancomycin * Monitor for sepsis, ongoing drainage, pain control, and hypertension * Surgical consult - will take him to OR for I&D 02/01 NPO after MN * Labs: blood cultures pending; wound cx - MRSA - continue vancomycin * Supportive care and anxiety management as needed (2) Nicotine addiction: Status: Acute Assessment and plan: 30 years Offer nicotine patch (3) Crack cocaine use: Status: Acute Assessment and plan: Last use a few days ago - UDS + for cocaine (4) Marijuana abuse: Status: Acute Assessment and plan: Last use 2 weeks ago - UDS negative for cannabinoids Subjective Subjective Patient reports: no new complaints, pain is less, tolerating liquids well, tolerating a regular diet, voiding w/o difficulty, bowel movement and afebrile; denies diarrhea, nausea, vomiting or shortness of breath Interval history since last seen: Patient states he still has significant pain, he has agreed to I&D tomorrow 02/01 in the OR by surgery. Exam Const General: cooperative and no acute distress HENMT Mouth: moist mucous membranes Eyes Conjunctivae: normal conjunctivae Sclera: normal sclerae Neck Neck: full ROM Resp Auscultation: clear to auscultation bilaterally, no rales, no rhonchi and no wheezes Cardio Rate: regular rate and not tachycardic Rhythm: regular rhythm GI Palpation: soft, not firm, no guarding, no masses, not rigid and nontender Skin Other: Large abscess posterior right neck draining some pus Multiple excoriations/superficial ulcers on his hands Neuro General: patient alert, patient awake and tone normal Extrem General: no edema Objective Last Vital Signs Temp 36.9 C 01/31/25 15:16 Pulse 68 01/31/25 15:16 Resp 16 01/31/25 15:16 BP 158/98 H 01/31/25 15:16 Pulse Ox 98 01/31/25 15:16 Laboratory Results - last 24 hr 01/30/25 01/31/25 01/31/25 14:55 04:00 09:11 WBC 14.29 H RBC 4.44 Hgb 12.1 L Hct 36.6 L MCV 82 MCH 27.3 MCHC 33.1 RDW 13.7 Plt Count 329 MPV 8.8 Immature Gran % 0.3 Neutrophils % 67.4 Lymphocytes % 19.0 Monocytes % 9.9 Eosinophils % 3.0 Basophils % 0.4 Nucleated RBC % 0.0 Absolute Neutrophils 9.63 H Absolute Lymphocytes 2.72 Absolute Monocytes 1.41 H Absolute Eosinophils 0.43 Absolute Basophils 0.06 Sodium 139 Potassium Chloride Carbon Dioxide Anion Gap BUN Creatinine Est GFR (CKD-EPI 2020) Glucose Calcium Total Bilirubin AST ALT Alkaline Phosphatase C-Reactive Protein Total Protein Albumin Random Vancomycin 4.2 Urine Opiates Screen Negative Urine Methadone Screen Negative Ur Barbiturates Screen Negative Ur Tricyclics Screen Negative Ur Amphetamines Screen Negative U Benzodiazepines Scrn Negative Urine Cocaine Screen Positive A U Cannabinoids Screen Negative 01/31/25 01/31/25 01/31/25 09:11 09:11 09:11 WBC RBC Hgb Hct MCV MCH MCHC RDW Plt Count MPV Immature Gran % Neutrophils % Lymphocytes % Monocytes % Eosinophils % Basophils % Nucleated RBC % Absolute Neutrophils Absolute Lymphocytes Absolute Monocytes Absolute Eosinophils Absolute Basophils Sodium Cancelled Potassium 3.8 Cancelled Chloride 107 Cancelled Carbon Dioxide 24.7 Anion Gap BUN Creatinine Est GFR (CKD-EPI 2020) Glucose Calcium Total Bilirubin AST ALT Alkaline Phosphatase C-Reactive Protein Total Protein Albumin Random Vancomycin Urine Opiates Screen Urine Methadone Screen Ur Barbiturates Screen Ur Tricyclics Screen Ur Amphetamines Screen U Benzodiazepines Scrn Urine Cocaine Screen U Cannabinoids Screen 01/31/25 01/31/25 01/31/25 09:11 09:11 09:11 WBC RBC Hgb Hct MCV MCH MCHC RDW Plt Count MPV Immature Gran % Neutrophils % Lymphocytes % Monocytes % Eosinophils % Basophils % Nucleated RBC % Absolute Neutrophils Absolute Lymphocytes Absolute Monocytes Absolute Eosinophils Absolute Basophils Sodium Potassium Chloride Carbon Dioxide Cancelled Anion Gap 7.3 Cancelled BUN 14 Cancelled Creatinine 0.8 Est GFR (CKD-EPI 2020) Glucose Calcium Total Bilirubin AST ALT Alkaline Phosphatase C-Reactive Protein Total Protein Albumin Random Vancomycin Urine Opiates Screen Urine Methadone Screen Ur Barbiturates Screen Ur Tricyclics Screen Ur Amphetamines Screen U Benzodiazepines Scrn Urine Cocaine Screen U Cannabinoids Screen 01/31/25 01/31/25 01/31/25 09:11 09:11 09:11 WBC RBC Hgb Hct MCV MCH MCHC RDW Plt Count MPV Immature Gran % Neutrophils % Lymphocytes % Monocytes % Eosinophils % Basophils % Nucleated RBC % Absolute Neutrophils Absolute Lymphocytes Absolute Monocytes Absolute Eosinophils Absolute Basophils Sodium Potassium Chloride Carbon Dioxide Anion Gap BUN Creatinine Cancelled Est GFR (CKD-EPI 2020) 101.50 Cancelled Glucose 100 Cancelled Calcium 8.5 Total Bilirubin AST ALT Alkaline Phosphatase C-Reactive Protein Total Protein Albumin Random Vancomycin Urine Opiates Screen Urine Methadone Screen Ur Barbiturates Screen Ur Tricyclics Screen Ur Amphetamines Screen U Benzodiazepines Scrn Urine Cocaine Screen U Cannabinoids Screen 01/31/25 01/31/25 01/31/25 09:11 09:11 09:11 WBC RBC Hgb Hct MCV MCH MCHC RDW Plt Count MPV Immature Gran % Neutrophils % Lymphocytes % Monocytes % Eosinophils % Basophils % Nucleated RBC % Absolute Neutrophils Absolute Lymphocytes Absolute Monocytes Absolute Eosinophils Absolute Basophils Sodium Potassium Chloride Carbon Dioxide Anion Gap BUN Creatinine Est GFR (CKD-EPI 2020) Glucose Calcium Cancelled Total Bilirubin 0.50 Cancelled AST 12 Cancelled ALT 9 L Alkaline Phosphatase C-Reactive Protein Total Protein Albumin Random Vancomycin Urine Opiates Screen Urine Methadone Screen Ur Barbiturates Screen Ur Tricyclics Screen Ur Amphetamines Screen U Benzodiazepines Scrn Urine Cocaine Screen U Cannabinoids Screen 01/31/25 01/31/25 01/31/25 09:11 09:11 09:11 WBC RBC Hgb Hct MCV MCH MCHC RDW Plt Count MPV Immature Gran % Neutrophils % Lymphocytes % Monocytes % Eosinophils % Basophils % Nucleated RBC % Absolute Neutrophils Absolute Lymphocytes Absolute Monocytes Absolute Eosinophils Absolute Basophils Sodium Potassium Chloride Carbon Dioxide Anion Gap BUN Creatinine Est GFR (CKD-EPI 2020) Glucose Calcium Total Bilirubin AST ALT Cancelled Alkaline Phosphatase 66 Cancelled C-Reactive Protein 4.07 H Total Protein 6.2 Cancelled Albumin 3.7 Random Vancomycin Urine Opiates Screen Urine Methadone Screen Ur Barbiturates Screen Ur Tricyclics Screen Ur Amphetamines Screen U Benzodiazepines Scrn Urine Cocaine Screen U Cannabinoids Screen 01/31/25 09:11 WBC RBC Hgb Hct MCV MCH MCHC RDW Plt Count MPV Immature Gran % Neutrophils % Lymphocytes % Monocytes % Eosinophils % Basophils % Nucleated RBC % Absolute Neutrophils Absolute Lymphocytes Absolute Monocytes Absolute Eosinophils Absolute Basophils Sodium Potassium Chloride Carbon Dioxide Anion Gap BUN Creatinine Est GFR (CKD-EPI 2020) Glucose Calcium Total Bilirubin AST ALT Alkaline Phosphatase C-Reactive Protein Total Protein Albumin Cancelled Random Vancomycin Urine Opiates Screen Urine Methadone Screen Ur Barbiturates Screen Ur Tricyclics Screen Ur Amphetamines Screen U Benzodiazepines Scrn Urine Cocaine Screen U Cannabinoids Screen PAWSS Have you Been Recently Intoxicated or Drunk Within the Last 30 days?: No Have you Ever Experienced Previous Episodes of Alcohol Withdrawal?: No Have you ever Experienced Withdrawal Seizures?: No Have you ever Experienced Delirium Tremens(DT)s?: No Have you ever undergone Alcohol Rehabilitation Treatment (i.e, inpt ot outpatient treatment programs)?: No Have you ever Experienced Blackouts?: No Have you ever Combined Alcohol with other Downers within the last 90 days?: No Have you ever Combined Alcohol with any other Substance of Abuse during the last 90 days?: No Positive Blood Alcohol level on Presentation? [PCS.BAL]: No Evidence of Increased Autonomic Activity (i.e. HR>120, tremor, sweating, agitation, nausea)?: No Result: 0 Time Spent with Patient Time Spent with Patient: 25-34 minutes Time was spent: preparing to see the patient(eg.review tests), ordering medications,tests, procedures, referring, communicating with other health social worker palliative care, indepentently interpreting results, counseling the patient and care coordination
[2025-01-31 19:21] VITALS: BP 121/68; PULSE 72; RESP 18; TEMP 36.8; O2SAT 96
[2025-01-31 22:23] VITALS: BP 150/88; PULSE 69; RESP 16; TEMP 36.6; O2SAT 99
[2025-02-01] VITALS (31 sets, daily range): BP systolic 143–183; BP diastolic 82–115; PULSE 60–88; RESP 10–21; TEMP 36.2–37.2; O2SAT 95–100; BMI 25.1
[2025-02-01] MEDS: Ketorolac 15 MG/ML VIAL IVP (02:30)
[2025-02-01] MEDS: Acetaminophen 325 MG TAB 650 MG PO (02:31)
[2025-02-01] MEDS: VANCOMYCIN/WATER (PEG) 1 GM/200 ML BAG IVPB ×2 (05:17→14:10)
[2025-02-01 06:57] LABS: Abs Immature Grans 0.03 10^3/uL (0.0-0.06); HCT 37.9 % (40.0-50.0); HGB 12.6 g/dL (13.5-17.5); Immature Grans % 0.2 %; MCH 27.2 pg (27.0-33.0); MCHC 33.2 % (32.0-36.0); MCV 82 fL (80-95); MPV 8.7 fL (8.0-11.0); Platelet Count 329 10^3/uL (130-400); RBC 4.63 10^6/uL (4.36-5.78); RDW 13.7 % (11.8-14.1); RDW-SD 40.9 fL; WBC 12.37 10^3/uL (4.4-10.8)
[2025-02-01 07:26] LABS: Anion Gap 6.3 mmol/L (3-11); BUN 13 mg/dL (9-23); CO2 25.7 mmol/L (20.0-31.0); Calcium 9.0 mg/dL (8.3-10.6); Chloride 109 mmol/L (98-107); Glucose 101 mg/dL (74-106); Potassium 4.4 mmol/L (3.5-5.1); Sodium 141 mmol/L (136-145)
[2025-02-01 07:27] LABS: Magnesium 1.9 mg/dL (1.6-2.6)
[2025-02-01 07:47] LABS: Vancomycin, Trough 32.7 ug/mL (5.0-10.0)
[2025-02-01] MEDS: Nicotine 21 MG/24 HR PATCH TD (09:29)
[2025-02-01] MEDS: Normal Saline Flush 10 ML SYR IVP ×4 (09:31→21:19)
--- NOTE | 2025-02-01 13:12 | PDOC.CMPRO ---
Date of service: 02/01/25 Time of Service: 13:12 Care Management Progress Note Progress Note Text Progress Note Text: Bryan was up walking in his room when CM met with him at around noon. He still had not been taken to surgery, and there is no known time for this surgery as of yet. Understandably, Orville is getting anxious and also a bit hangry waiting to go to surgery. He is still hoping to still go home tonight. He has friends who have said they will help with his dressing changes after surgery, and he plans to reach out to his PCP in [facility] for follow up. [employer] has submitted his medicaid application, and feel sure that he will qualify back to the first of the month. Discharge Potential Discharge Needs: PCP F/U Appt and Surgical F/U Appt Anticipated Barriers to Discharge: None Identified Patient/Family Education Needs: Review discharge instructions, discuss [employer] and Other (dressing supplies and teaching) Transportation: Private vehicle Plan: Bryan will discharge home with no new services. He will f/u with his PCP and with the surgeon and continue per his plan of care. CM will continue to follow. Social Determinants of Health Screening Will the Patient Participate in the Screening?: Declined to provide
[2025-02-01 13:58] LABS: Vancomycin, Trough 11.6 ug/mL (5.0-10.0)
--- NOTE | 2025-02-01 14:31 | W.ANESPRE ---
General Info Date of Service Date Performed: 02/01/25 Height: 5 ft 10 in Weight: 79.379 kg Body Mass Index (BMI): 25.1 Surgical Procedure: Operation Date: 02/01/25 12:25 Proposed Procedure Side Surgeon p I&D Neck Abscess Right Afshin Du MD Meds Allergies and Home Medications Allergies Allergy/AdvReac Type Severity Reaction Status Date / Time No Known Allergies Allergy Unverified 01/30/25 16:07 Home Medication ?Medication ?Instructions ?Recorded Unknown [No Known Home Meds] 01/30/25 Current Visit Medications: Current Medications Generic Name Dose Route Start Last Admin Trade Name Freq PRN Reason Stop Dose Admin Acetaminophen 650 mg 01/30/25 16:18 02/01/25 02:31 Acetaminophen 325 Mg Tab PO 650 mg Q4H PRN PRN Administration Vancomycin/PEG/NADA/Lysine/Water 1 gm in 200 mls @ 200 mls/hr 01/31/25 14:00 02/01/25 14:10 Vancocin Injection IVPB 200 mls/hr Q8H JULIUS Administration Sodium Chloride 1,000 mls @ 125 mls/hr 01/31/25 23:55 Saline 1000ml Bag IV INFUSION JULIUS Ketorolac Tromethamine 15 mg 01/30/25 16:38 02/01/25 02:30 Ketorolac 15 Mg/Ml Vial IVP 02/04/25 16:37 15 mg Q6H PRN PRN Administration Lorazepam 1 mg 01/30/25 16:55 01/31/25 15:38 Lorazepam 20 Mg/10 Ml Vial IVP 1 mg Q2H PRN PRN Administration Nicotine 21 mg 02/01/25 08:30 02/01/25 09:29 Nicotine 21 Mg/24 Hr Patch TD 21 mg DAILY JULIUS Administration Polyethylene Glycol 17 gm 01/30/25 16:18 Polyethylene Glycol 3350 17 Gm Packet PO DAILY PRN PRN Constipation Sodium Chloride 0 ml 01/30/25 14:12 02/01/25 09:31 Normal Saline Flush 10 Ml Syr IVP 10 ml PRN PRN Administration PFSH Active Problems Active Problems: Problem Status Onset Code Marijuana abuse Acute F12.10 Crack cocaine use Acute F14.90 Nicotine addiction Acute F17.200 Abscess, neck Acute L02.11 Tobacco Smoking/Tobacco Use Status: Current every day Tobacco Type: cigarettes Smoking cigarettes per day: 15 Years smoked: 30 Passive smoking exposure: Yes Alcohol Alcohol Intake: former Substance Use Substance use: Occasionally Substance use type: marijuana and crack/cocaine Details: Reports last use of cocaine was a few days ago and marijuana was about 2 weeks ago Vital Signs and Lab Results Vital Signs Most Recent Vital Signs in EMR: Most Recent Vital Signs Temp Pulse Resp BP Pulse Ox 37.2 C 88 18 150/95 H 97 02/01/25 11:13 02/01/25 11:13 02/01/25 11:13 02/01/25 11:13 02/01/25 11:13 Lab Results 02/01/25 06:43 02/01/25 06:43 Complete Blood Count: WBC, (4.4-10.8) 12.37 10^3/uL H Today, 06:43 RBC, (4.36-5.78) 4.63 10^6/uL Today, 06:43 Hgb, (13.5-17.5) 12.6 g/dL L Today, 06:43 Hct, (40.0-50.0) 37.9 % L Today, 06:43 Plt Count, (130-400) 329 10^3/uL Today, 06:43 Complete Metabolic Panel: Sodium, (136-145) 141 mmol/L Today, 06:43 Potassium, (3.5-5.1) 4.4 mmol/L Today, 06:43 Chloride, (98-107) 109 mmol/L H Today, 06:43 Carbon Dioxide, (20.0-31.0) 25.7 mmol/L Today, 06:43 BUN, (9-23) 13 mg/dL Today, 06:43 Creatinine, (0.73-1.18) 0.7 mg/dL L Today, 06:43 Est GFR (CKD-EPI 2020), (mL/min/1.73m2) 126.73 Today, 06:43 Magnesium, (1.6-2.6) 1.9 mg/dL Today, 06:43 Calcium, (8.3-10.6) 9.0 mg/dL Today, 06:43 Albumin, (3.4-5.0) 3.7 g/dL 01/31/25, 09:11 Glucose, (74-106) 101 mg/dL Today, 06:43 C-Reactive Protein, (<=0.50) 4.07 mg/dL H 01/31/25, 09:11 Liver Function Panel: ALT, (10-49) 9 U/L L 01/31/25, 09:11 AST, (<34) 12 U/L 01/31/25, 09:11 Toxicology Panel: Ur Amphetamines Screen, (Negative) Negative 01/30/25, 14:55 U Benzodiazepines Scrn, (Negative) Negative 01/30/25, 14:55 Ur Barbiturates Screen, (Negative) Negative 01/30/25, 14:55 Urine Cocaine Screen, (Negative) Positive A 01/30/25, 14:55 Urine Methadone Screen, (Negative) Negative 01/30/25, :55 Urine Opiates Screen, (Negative) Negative 01/30/25, 14:55 Ur Tricyclics Screen, (Negative) Negative 01/30/25, 14:55 Anesthesia Assessment and Plan Anesthesia History Personal History: No History of Anesthesia Complications Family History: No Family History of Anesthesia Complications Exercise Tolerance Exercise Tolerance: Metabolic Equivalents>4 Pertinent Negatives Pertinent Negatives: No Symptoms of GERD Cardiac & Pulmonary Exam Cardiac Exam: Normal S1/S2 Heart Sounds Pulmonary Exam: Clear Bilateral Breath Sounds (Active cough. History of Black mold lung infection. Active smoker.) Implantable Cardiac Device Does patient have a Pacemaker or an ICD?: No Airway Exam Known Difficult Airway: No Mallampati Class: 2 Mouth Opening: Normal (> 3cm) Thyromental Distance: Greater than 3 cm Neck Range of Motion: Full ROM Neck Circumference: Normal Teeth Condition: Normal Dentition ASA Classification ASA Score: ASA 2 Emergency Case?: No NPO Status NPO Status: NPO Clears >2 hours, Solids >8 hours Anesthesia Plan Resuscitation Status: Full Code Anesthesia Technique: General Anesthesia Airway Planned: LMA Monitors Used: Standard Monitors and SedLine
--- NOTE | 2025-02-01 14:42 | W.PM.OP ---
Operative Note Operative Note PRE-OP DIAGNOSIS: Right neck abscess POST-OP DIAGNOSIS: same PROCEDURE: Incision and drainage of right neck abscess SURGEON: Afshin Du PRESS ASSISTANT AND FEEDER: Ciarra Narvaez ANESTHESIA TYPE: Local By Surgeon and General LMA/ETT Refer to Anesthesia Record ESTIMATED BLOOD LOSS: 10 PATHOLOGY: other (Abscess for Gram stain culture) COMPLICATIONS: None Patient was transported to: PACU Patient's condition: stable Indications: Lj is a 50-year-old male with an abscess on the posterior part of the right neck Findings: Loculated abscess of the posterior right neck Procedure Description: Lj was brought back to the operating room, and assisted in the left lateral decubitus position. Anesthesia was initiated with a natural airway. The area of the right neck abscess was prepped and draped. I established a generous field block using local anesthetic. I then made a cruciate incision over the central portion of the abscess and debrided away some necrotic skin edge. There was immediate drainage of purulent fluid which was obtained for Gram stain and culture. This was a loculated abscess that extended down to the neck muscles. Loculations were manually debrided. Once the wound was completely opened and drained, it was approximately 2 cm x 2 cm x 3-1/2 cm deep. It was irrigated clean. It was hemostatic, and packed with quarter inch iodoform gauze packing. Superficial bandage was applied, and the Lance was awoken from the anesthetic, and transferred to the recovery unit. Date of Procedure: 02/01/25
[2025-02-01] MEDS: Lidocaine 1% Pres-Free 30 ML VIAL (15:14)
--- NOTE | 2025-02-01 15:25 | W.ANESPOSTOP ---
Postoperative Evaluation Date, Time and Location Date Performed: 02/01/25 Time Performed: 15:25 Patient Location: PACU Vital Signs Most Recent Imported Vital Signs: Most Recent Vital Signs Temp Pulse Resp BP Pulse Ox 36.6 C 61 21 151/98 H 100 02/01/25 15:15 02/01/25 15:16 02/01/25 15:16 02/01/25 15:16 02/01/25 15:16 Pain Score Most Recent Pain Score: Most Recent Pain Score Pain Level 0 02/01/25 15:15 Assessment Mental Status: Awake (Alert & Oriented to Patient Baseline) Airway and Respiratory Function: Patent airway with normal (patient baseline) respiratory exam Cardiovascular Function: Hemodynamically Stable Hydration Status: Adequately Hydrated Nausea & Vomiting: No Nausea or Vomiting Pain: Pain is tolerable per patient Peripheral Nerve Block: Patient did not receive a nerve block
[2025-02-01] MEDS: HYDROmorphone 2 MG/ML SYR IVP ×2 (15:29→15:45)
--- NOTE | 2025-02-01 17:52 | W.PM.PROGNOT ---
Date of Service Date of service: 02/01/25 Time of Service: 17:52 Assessment and Plan Assessment and plan (1) Abscess, neck: Status: Acute Assessment and plan: Neck abscess (significant size, I&D and packed today (02/01) by surgery - see their note Plan: Observation on medical floor on hospitalist service for IV antibiotics - continue Vancomycin Monitor for sepsis, ongoing drainage, pain control, and hypertension ; WBC less today Labs: blood cultures pending; wound cx - MRSA - continue vancomycin Supportive care and anxiety management as needed (2) Nicotine addiction: Status: Acute Assessment and plan: 30 years Offer nicotine patch (3) Crack cocaine use: Status: Acute Assessment and plan: Last use a few days ago - UDS + for cocaine (4) Marijuana abuse: Status: Acute Assessment and plan: Last use 2 weeks ago - UDS negative for cannabinoids Subjective Subjective Patient reports: no new complaints, feels better, still having pain, pain is less, tolerating liquids well, tolerating a regular diet, voiding w/o difficulty, flatus, bowel movement and afebrile; denies diarrhea, nausea or vomiting Interval history since last seen: Patient states he is feeling better after I&D in the OR by surgery. He states he has no one at home tonight to help with the dressing and that he would have to be outside cutting wood for a wood stove to have heat. Exam Const General: cooperative and no acute distress HENMT Mouth: moist mucous membranes Eyes Conjunctivae: normal conjunctivae Sclera: normal sclerae Neck Neck: full ROM Resp Auscultation: clear to auscultation bilaterally, no rales, no rhonchi and no wheezes Cardio Rate: regular rate and not tachycardic Rhythm: regular rhythm GI Palpation: soft, not firm, no guarding, no masses, not rigid and nontender Skin Other: Large abscess posterior right neck I&D'd by surgery - packing in place, covered with mepalex. Multiple excoriations/superficial ulcers on his hands Neuro General: patient alert, patient awake and tone normal Extrem General: no edema Objective Last Vital Signs Temp 36.7 C 02/01/25 17:23 Pulse 74 02/01/25 17:23 Resp 18 02/01/25 17:23 BP 154/86 H 02/01/25 17:23 Pulse Ox 97 02/01/25 17:23 Laboratory Results - last 24 hr 02/01/25 02/01/25 06:43 13:25 WBC 12.37 H RBC 4.63 Hgb 12.6 L Hct 37.9 L MCV 82 MCH 27.2 MCHC 33.2 RDW 13.7 Plt Count 329 MPV 8.7 Immature Gran % 0.2 Neutrophils % 68.1 Lymphocytes % 17.0 Monocytes % 8.5 Eosinophils % 5.6 Basophils % 0.6 Nucleated RBC % 0.0 Absolute Neutrophils 8.42 H Absolute Lymphocytes 2.10 Absolute Monocytes 1.05 H Absolute Eosinophils 0.69 Absolute Basophils 0.07 Sodium 141 Potassium 4.4 Chloride 109 H Carbon Dioxide 25.7 Anion Gap 6.3 BUN 13 Creatinine 0.7 L Est GFR (CKD-EPI 2020) 126.73 Glucose 101 Calcium 9.0 Magnesium 1.9 Vancomycin Trough 32.7 H* 11.6 H PAWSS Have you Been Recently Intoxicated or Drunk Within the Last 30 days?: No Have you Ever Experienced Previous Episodes of Alcohol Withdrawal?: No Have you ever Experienced Withdrawal Seizures?: No Have you ever Experienced Delirium Tremens(DT)s?: No Have you ever undergone Alcohol Rehabilitation Treatment (i.e, inpt ot outpatient treatment programs)?: No Have you ever Experienced Blackouts?: No Have you ever Combined Alcohol with other Downers within the last 90 days?: No Have you ever Combined Alcohol with any other Substance of Abuse during the last 90 days?: No Positive Blood Alcohol level on Presentation? [PCS.BAL]: No Evidence of Increased Autonomic Activity (i.e. HR>120, tremor, sweating, agitation, nausea)?: No Result: 0 Time Spent with Patient Time Spent with Patient: 25-34 minutes Time was spent: preparing to see the patient(eg.review tests), ordering medications,tests, procedures, referring, communicating with other health laboratory animal caretaker, indepentently interpreting results, counseling the patient and care coordination
[2025-02-01] MEDS: VANCOMYCIN/WATER (PEG) 1.25 GM/250 ML BAG IVPB (21:18)
[2025-02-02] MEDS: Ketorolac 15 MG/ML VIAL IVP (05:44)
[2025-02-02] MEDS: Normal Saline Flush 10 ML SYR IVP ×2 (05:44→07:31)
[2025-02-02] MEDS: Acetaminophen 325 MG TAB 650 MG PO (05:45)
[2025-02-02] MEDS: VANCOMYCIN/WATER (PEG) 1.25 GM/250 ML BAG IVPB (05:47)
[2025-02-02 06:42] LABS: Abs Immature Grans 0.06 10^3/uL (0.0-0.06); HCT 38.2 % (40.0-50.0); HGB 12.5 g/dL (13.5-17.5); Immature Grans % 0.5 %; MCH 27.1 pg (27.0-33.0); MCHC 32.7 % (32.0-36.0); MCV 83 fL (80-95); MPV 9.1 fL (8.0-11.0); Platelet Count 366 10^3/uL (130-400); RBC 4.61 10^6/uL (4.36-5.78); RDW 13.6 % (11.8-14.1); RDW-SD 41.5 fL; WBC 11.97 10^3/uL (4.4-10.8)
[2025-02-02 06:54] LABS: Magnesium 1.8 mg/dL (1.6-2.6)
[2025-02-02 06:55] LABS: Anion Gap 9.7 mmol/L (3-11); BUN 22 mg/dL (9-23); CO2 24.3 mmol/L (20.0-31.0); Calcium 8.8 mg/dL (8.3-10.6); Chloride 109 mmol/L (98-107); Glucose 85 mg/dL (74-106); Potassium 4.2 mmol/L (3.5-5.1); Sodium 143 mmol/L (136-145)
[2025-02-02] MEDS: Nicotine 21 MG/24 HR PATCH TD (07:31)
--- NOTE | 2025-02-02 08:49 | PGE_ITS ---
<Statement entered by Shannon Walls MD - 02/04/25 16:30> agree w [place] note including assessment and plan. Date of Service Date of service: 02/02/25 Time of Service: 08:49 Assessment and Plan Assessment and plan (1) Abscess, neck: Status: Acute Assessment and plan: Awaiting wound cultures, will need to transition to PO antibiotics for MRSA coverage He will need to change his packing and dressing daily. He may shower after removing the dressing, allowing warm soapy water to run over the area. After showering he should pack the wound and cover with a secondary dressing. Reviewed and discussed signs and symptoms of infection to include fevers, chills, sweats, redness, soreness or swelling in the area, new onset pain or new onset/change in drainage. Patient verbalized understanding and will call this office, their PCP or go to the ER if any of these symptoms occur. Follow up with surgical office next week for wound check. Subjective Subjective Interval history since last seen: Patient reports he is ready and eager to be d/c home. He describes that he feels that he and his mom can perform the wound care necessary for his I&D site. He denies any pain at this time. Exam Const General: cooperative, healthy appearing and comfortable Orientation: alert and oriented x3 Resp Effort & Inspection: normal respiratory effort, no audible wheezes and no cough Objective Last Vital Signs Temp 36.2 C L 02/01/25 23:33 Pulse 72 02/01/25 23:33 Resp 17 02/01/25 23:33 BP 149/82 H 02/01/25 23:33 Pulse Ox 95 02/01/25 23:33 Laboratory Results - last 24 hr 02/01/25 02/02/25 13:25 06:27 WBC 11.97 H RBC 4.61 Hgb 12.5 L Hct 38.2 L MCV 83 MCH 27.1 MCHC 32.7 RDW 13.6 Plt Count 366 MPV 9.1 Immature Gran % 0.5 Neutrophils % 67.5 Lymphocytes % 16.7 Monocytes % 8.1 Eosinophils % 6.4 Basophils % 0.8 Nucleated RBC % 0.0 Absolute Neutrophils 8.08 H Absolute Lymphocytes 2.00 Absolute Monocytes 0.97 H Absolute Eosinophils 0.77 H Absolute Basophils 0.10 Sodium 143 Potassium 4.2 Chloride 109 H Carbon Dioxide 24.3 Anion Gap 9.7 BUN 22 Creatinine 0.7 L Est GFR (CKD-EPI 2020) 114.62 Glucose 85 Calcium 8.8 Magnesium 1.8 Vancomycin Trough 11.6 H PAWSS Have you Been Recently Intoxicated or Drunk Within the Last 30 days?: No Have you Ever Experienced Previous Episodes of Alcohol Withdrawal?: No Have you ever Experienced Withdrawal Seizures?: No Have you ever Experienced Delirium Tremens(DT)s?: No Have you ever undergone Alcohol Rehabilitation Treatment (i.e, inpt ot outpatient treatment programs)?: No Have you ever Experienced Blackouts?: No Have you ever Combined Alcohol with other Downers within the last 90 days?: No Have you ever Combined Alcohol with any other Substance of Abuse during the last 90 days?: No Positive Blood Alcohol level on Presentation? [PCS.BAL]: No Evidence of Increased Autonomic Activity (i.e. HR>120, tremor, sweating, agitation, nausea)?: No Result: 0 Time Spent with Patient Time Spent with Patient: <25 minutes Time was spent: referring, communicating with other health healthcare financial analyst, indepentently interpreting results and care coordination
--- NOTE | 2025-02-02 10:14 | CMDISCH_ITS ---
Date of service: 02/02/25 Time of Service: 10:18 LACE Index Scoring Tool Questions: Length of Stay (in days): 3 Was the patient admitted via the E.D.?: Yes E.D. Visits: 1 Answers: Total Score: 7 Risk of Readmission: Low Risk Care Management Discharge Plan Reason for Hospitalization: Right posterior neck superficial abscess Discharge Plan: Bryan will be discharged home today with no new services indicated. It is recommended that he follow up with his community provider who is Adilson Montejo at [facility] in [place], surgical team, [facility] and plan of care. He will transport via private vehicle. [facility] has submitted his medicaid application, and he was also given the patient assistance packet. Patient/Family Education Needs: Review of discharge instructions, activity, li mitations, and plan of care. Discuss ask me three.
--- NOTE | 2025-02-06 06:28 | W.PM.DS.N ---
Date of service: 02/02/25 Time of Service: 10:00 DS: Diagnosis Discharge Diagnosis (1) Abscess, neck: Status: Acute Discharge Plan Disposition Patient Disposition: Home Condition: Improving Discharge Details Reason For Visit: Right Posterior Neck Superficial Abscess Admit Date/Time: 01/30/25 15:34 Admit Provider: Reggie Troncoso Attending Provider: Reggie Troncoso Primary Care Provider: Adilson Montejo Hospital Course Hospital Course: This is a 50 year old male patient with past medical history of substance abuse, presented to the [facility] ED with 3 days of posterior neck swelling and severe pain. CT neck showed a large (3 ? 2.6 ? 4.5 cm) right posterior neck abscess extending through fascia to the underlying muscle. In the ED, he underwent ultrasound-guided I&D, producing a small amount of purulent drainage. Vancomycin was initiated. Admission labs showed leukocytosis (WBC 19.25), mild anemia, and mild hypokalemia. Blood and wound cultures were obtained. Urine was positive for cocaine. The patient went to the OR and had I &D by surgery. During hospitalization, the patient remained hemodynamically stable and afebrile. Leukocytosis gradually improved (WBC 11.97 by 02/01). Pain resolved. Wound continued to drain minimally with daily dressing changes. Wound cultures - MRSA; sensitivites pending at discharge. Surgery recommendation was the patient have someone perform daily wound packing, and follow strict wound care instructions. Signs of infection were reviewed with the patient, who verbalized understanding. Outpatient surgical follow-up was arranged for the following week. CONDITION AT DISCHARGE Afebrile, hemodynamically stable Pain resolved Wound clean with improving drainage Able to perform dressing changes with assistance from mother Tolerating diet, ambulatory Medically stable for discharge home DISCHARGE MEDICATIONS Linezolid 600 mg twice a day for 7 days Analgesics: acetaminophen or ibuprofen PRN Home Meds and New Rx's Prescriptions: New linezolid 600 mg tablet 600 mg PO BID Qty: 14 0RF ibuprofen 800 mg tablet 800 mg PO TID PRNQty: 30 0RF Discharge Instructions Instructions: Methicillin-resistant Staphylococcus aureus (MRSA), Abscess Incision and Drainage (DC), Linezolid Additional Instructions: Take Linezolid 600 mg twice a day. Ibuprofen for pain Daily Dressing Change: You will need to change your packing and dressing every day. Showering: You may shower after removing the dressing, allowing warm soapy water to gently clean the area. Repacking and Dressing: After showering, the wound should be repacked and covered with a new secondary dressing. Avoid friction or pressure to wound area. Signs of Infection: It's critical to monitor for signs of infection, including: Fever, chills, or sweating Redness, soreness, or swelling around the wound New or increased pain Odor from wound Changes in drainage (color, amount, or consistency) When to Seek Help: If any of the above symptoms occur, you should contact the surgery office, reach out to your primary care provider, or go to the ED. Follow-up: Follow up with the surgical office next week for a wound check. Follow up with PCP. Stand Alone Forms: Portal Information, Nursing Discharge Form Referrals: Adilson Montejo [Primary Care Provider, Medicine] Referral Note: 1 week post hospitalization for abscess on posterior neck (MRSA) discharged with Linezolid for 7d. PCP office will call to set up a follow up appointment. If you don't hear from them, please give them a call. Afshin Du MD [ [facility] STAFF PHYSICIAN, Surgery] Referral Note: 1 week post hospitalization for MRSA abscess posterior neck - dc w Linezolid x 7d. Office will give you a call to set up a follow up appointment. Activity:: Activity as Tolerated Equipment/Supplies:: No Equipment Needed Diet:: As Tolerated Discharge Orders Discharge Orders: Discharge Order (Routine); Ordered 02/02/25 Ordered By: Leslie Ortiz Discharge Data Discharge Date/Time-TO BE ENTERED AT DEPARTURE: 02/02/25 12:01 DS: Summary Time Spent with Patient providing and/or coordinating discharge services: Greater than 30 minutes Status at Discharge Functional status at discharge: independent ambulation Overall status at discharge: patient is progressing back to baseline Mental Status: mental status grossly normal Speech and Movement: speech and movement normal Mood: congruent mood Affect: normal affect Exam Const General: cooperative and no acute distress HENMT Mouth: moist mucous membranes Eyes Conjunctivae: normal conjunctivae Sclera: normal sclerae Neck Neck: full ROM Resp Auscultation: clear to auscultation bilaterally, no rales, no rhonchi and no wheezes Cardio Rate: regular rate and not tachycardic Rhythm: regular rhythm GI Palpation: soft, not firm, no guarding, no masses, not rigid and nontender Skin Other: Large abscess posterior right neck draining some pus; packed. Multiple excoriations/superficial ulcers on his hands Neuro General: patient alert, patient awake and tone normal Extrem General: no edema Psych Mental Status: mental status grossly normal Speech and Movement: speech and movement normal Mood: congruent mood Affect: normal affect DS: Data Vitals/I&O Vitals and I&O: Vital Signs Temperature 36.2 C L 02/01/25 23:33 Temperature Source Temporal Artery Scan 02/01/25 23:33 Pulse 72 02/01/25 23:33 Pulse Rhythm Regular 01/30/25 16:36 Pulse 74 02/01/25 15:51 Respiratory Rate 17 02/01/25 23:33 Respiratory Effort Normal, Non-Labored 01/30/25 16:36 Respiratory Depth Normal 01/30/25 16:36 Respiratory Pattern Normal 01/30/25 16:36 Blood Pressure 149/82 H 02/01/25 23:33 Blood Pressure Mean 104 02/01/25 23:33 Blood Pressure Position Sitting 01/30/25 13:10 Pulse Oximetry 95 02/01/25 23:33 Respiratory End-tidal CO2 49 02/01/25 15:51 Oxygen Delivery Method Room Air 02/01/25 23:33 Oxygen Flow Rate 0 02/01/25 23:33 Pain Level 0 02/02/25 12:18 Comment pt refused 3 am vitals...nurse notified 02/02/25 03:16 Data Completed and Pending Pending Labs at Discharge: 01/30/25 01/30/25 01/31/25 13:54 14:55 04:00 WBC 19.25 H RBC 4.71 Hgb 12.7 L Hct 38.8 L MCV 82 MCH 27.0 MCHC 32.7 RDW 14.0 Plt Count 353 MPV 8.9 Immature Gran % 0.4 Neutrophils % 77.9 Lymphocytes % 12.1 Monocytes % 7.4 Eosinophils % 1.8 Basophils % 0.4 Nucleated RBC % 0.0 Absolute Neutrophils 15.00 H Absolute Lymphocytes 2.33 Absolute Monocytes 1.42 H Absolute Eosinophils 0.35 Absolute Basophils 0.08 Sodium 142 Potassium 3.4 L Chloride 106 Carbon Dioxide 26.7 Anion Gap 9.3 BUN 16 Creatinine 0.7 L Est GFR (CKD-EPI 2020) 114.63 Glucose 131 H Calcium 9.3 Magnesium Total Bilirubin 0.60 AST 17 ALT 14 Alkaline Phosphatase 80 C-Reactive Protein Total Protein 7.4 Albumin 4.5 Vancomycin Trough Random Vancomycin 4.2 Urine Opiates Screen Negative Urine Methadone Screen Negative Ur Barbiturates Screen Negative Ur Tricyclics Screen Negative Ur Amphetamines Screen Negative U Benzodiazepines Scrn Negative Urine Cocaine Screen Positive A U Cannabinoids Screen Negative 01/31/25 01/31/25 01/31/25 09:11 09:11 09:11 WBC 14.29 H RBC 4.44 Hgb 12.1 L Hct 36.6 L MCV 82 MCH 27.3 MCHC 33.1 RDW 13.7 Plt Count 329 MPV 8.8 Immature Gran % 0.3 Neutrophils % 67.4 Lymphocytes % 19.0 Monocytes % 9.9 Eosinophils % 3.0 Basophils % 0.4 Nucleated RBC % 0.0 Absolute Neutrophils 9.63 H Absolute Lymphocytes 2.72 Absolute Monocytes 1.41 H Absolute Eosinophils 0.43 Absolute Basophils 0.06 Sodium 139 Cancelled Potassium 3.8 Cancelled Chloride 107 Carbon Dioxide Anion Gap BUN Creatinine Est GFR (CKD-EPI 2020) Glucose Calcium Magnesium Total Bilirubin AST ALT Alkaline Phosphatase C-Reactive Protein Total Protein Albumin Vancomycin Trough Random Vancomycin Urine Opiates Screen Urine Methadone Screen Ur Barbiturates Screen Ur Tricyclics Screen Ur Amphetamines Screen U Benzodiazepines Scrn Urine Cocaine Screen U Cannabinoids Screen 01/31/25 01/31/25 01/31/25 09:11 09:11 09:11 WBC RBC Hgb Hct MCV MCH MCHC RDW Plt Count MPV Immature Gran % Neutrophils % Lymphocytes % Monocytes % Eosinophils % Basophils % Nucleated RBC % Absolute Neutrophils Absolute Lymphocytes Absolute Monocytes Absolute Eosinophils Absolute Basophils Sodium Potassium Chloride Cancelled Carbon Dioxide 24.7 Cancelled Anion Gap 7.3 Cancelled BUN 14 Creatinine Est GFR (CKD-EPI 2020) Glucose Calcium Magnesium Total Bilirubin AST ALT Alkaline Phosphatase C-Reactive Protein Total Protein Albumin Vancomycin Trough Random Vancomycin Urine Opiates Screen Urine Methadone Screen Ur Barbiturates Screen Ur Tricyclics Screen Ur Amphetamines Screen U Benzodiazepines Scrn Urine Cocaine Screen U Cannabinoids Screen 01/31/25 01/31/25 01/31/25 09:11 09:11 09:11 WBC RBC Hgb Hct MCV MCH MCHC RDW Plt Count MPV Immature Gran % Neutrophils % Lymphocytes % Monocytes % Eosinophils % Basophils % Nucleated RBC % Absolute Neutrophils Absolute Lymphocytes Absolute Monocytes Absolute Eosinophils Absolute Basophils Sodium Potassium Chloride Carbon Dioxide Anion Gap BUN Cancelled Creatinine 0.8 Cancelled Est GFR (CKD-EPI 2020) 101.50 Cancelled Glucose 100 Calcium Magnesium Total Bilirubin AST ALT Alkaline Phosphatase C-Reactive Protein Total Protein Albumin Vancomycin Trough Random Vancomycin Urine Opiates Screen Urine Methadone Screen Ur Barbiturates Screen Ur Tricyclics Screen Ur Amphetamines Screen U Benzodiazepines Scrn Urine Cocaine Screen U Cannabinoids Screen 01/31/25 01/31/25 01/31/25 09:11 09:11 09:11 WBC RBC Hgb Hct MCV MCH MCHC RDW Plt Count MPV Immature Gran % Neutrophils % Lymphocytes % Monocytes % Eosinophils % Basophils % Nucleated RBC % Absolute Neutrophils Absolute Lymphocytes Absolute Monocytes Absolute Eosinophils Absolute Basophils Sodium Potassium Chloride Carbon Dioxide Anion Gap BUN Creatinine Est GFR (CKD-EPI 2020) Glucose Cancelled Calcium 8.5 Cancelled Magnesium Total Bilirubin 0.50 Cancelled AST 12 ALT Alkaline Phosphatase C-Reactive Protein Total Protein Albumin Vancomycin Trough Random Vancomycin Urine Opiates Screen Urine Methadone Screen Ur Barbiturates Screen Ur Tricyclics Screen Ur Amphetamines Screen U Benzodiazepines Scrn Urine Cocaine Screen U Cannabinoids Screen 01/31/25 01/31/25 01/31/25 09:11 09:11 09:11 WBC RBC Hgb Hct MCV MCH MCHC RDW Plt Count MPV Immature Gran % Neutrophils % Lymphocytes % Monocytes % Eosinophils % Basophils % Nucleated RBC % Absolute Neutrophils Absolute Lymphocytes Absolute Monocytes Absolute Eosinophils Absolute Basophils Sodium Potassium Chloride Carbon Dioxide Anion Gap BUN Creatinine Est GFR (CKD-EPI 2020) Glucose Calcium Magnesium Total Bilirubin AST Cancelled ALT 9 L Cancelled Alkaline Phosphatase 66 Cancelled C-Reactive Protein 4.07 H Total Protein 6.2 Albumin Vancomycin Trough Random Vancomycin Urine Opiates Screen Urine Methadone Screen Ur Barbiturates Screen Ur Tricyclics Screen Ur Amphetamines Screen U Benzodiazepines Scrn Urine Cocaine Screen U Cannabinoids Screen 01/31/25 01/31/25 02/01/25 09:11 09:11 06:43 WBC 12.37 H RBC 4.63 Hgb 12.6 L Hct 37.9 L MCV 82 MCH 27.2 MCHC 33.2 RDW 13.7 Plt Count 329 MPV 8.7 Immature Gran % 0.2 Neutrophils % 68.1 Lymphocytes % 17.0 Monocytes % 8.5 Eosinophils % 5.6 Basophils % 0.6 Nucleated RBC % 0.0 Absolute Neutrophils 8.42 H Absolute Lymphocytes 2.10 Absolute Monocytes 1.05 H Absolute Eosinophils 0.69 Absolute Basophils 0.07 Sodium 141 Potassium 4.4 Chloride 109 H Carbon Dioxide 25.7 Anion Gap 6.3 BUN 13 Creatinine 0.7 L Est GFR (CKD-EPI 2020) 126.73 Glucose 101 Calcium 9.0 Magnesium 1.9 Total Bilirubin AST ALT Alkaline Phosphatase C-Reactive Protein Total Protein Cancelled Albumin 3.7 Cancelled Vancomycin Trough 32.7 H* Random Vancomycin Urine Opiates Screen Urine Methadone Screen Ur Barbiturates Screen Ur Tricyclics Screen Ur Amphetamines Screen U Benzodiazepines Scrn Urine Cocaine Screen U Cannabinoids Screen 02/01/25 02/02/25 13:25 06:27 WBC 11.97 H RBC 4.61 Hgb 12.5 L Hct 38.2 L MCV 83 MCH 27.1 MCHC 32.7 RDW 13.6 Plt Count 366 MPV 9.1 Immature Gran % 0.5 Neutrophils % 67.5 Lymphocytes % 16.7 Monocytes % 8.1 Eosinophils % 6.4 Basophils % 0.8 Nucleated RBC % 0.0 Absolute Neutrophils 8.08 H Absolute Lymphocytes 2.00 Absolute Monocytes 0.97 H Absolute Eosinophils 0.77 H Absolute Basophils 0.10 Sodium 143 Potassium 4.2 Chloride 109 H Carbon Dioxide 24.3 Anion Gap 9.7 BUN 22 Creatinine 0.7 L Est GFR (CKD-EPI 2020) 114.62 Glucose 85 Calcium 8.8 Magnesium 1.8 Total Bilirubin AST ALT Alkaline Phosphatase C-Reactive Protein Total Protein Albumin Vancomycin Trough 11.6 H Random Vancomycin Urine Opiates Screen Urine Methadone Screen Ur Barbiturates Screen Ur Tricyclics Screen Ur Amphetamines Screen U Benzodiazepines Scrn Urine Cocaine Screen U Cannabinoids Screen Preliminary micro results at discharge 02/01/25 14:54 Neck - Right Surgical Culture - Preliminary Staph aureus, MRSA 02/01/25 14:54 Neck - Right Anaerobic Culture - Preliminary PFSH All Active Problems (Updated 02/03/25 @ 00:04 by DAREN MENDOZA) Marijuana abuse (Acute) Crack cocaine use (Acute) Nicotine addiction (Acute) Abscess, neck (Acute) Social History Smoking/Tobacco Use Status: Current every day Tobacco Type: cigarettes Years smoked: 30 Tobacco: How many years used: 30 Smoking risk assessment performed?: Yes Alcohol Intake: former Drug use: Occasionally Substance use type: marijuana and crack/cocaine Details: Reports last use of cocaine was a few days ago and marijuana was about 2 weeks ago Housing: other Time Spent with Patient Time Spent with Patient: 45-69 minutes Time was spent: preparing to see the patient(eg.review tests), ordering medications,tests, procedures, referring, communicating with other health career technical supervisor, indepentently interpreting results, counseling the patient and care coordination
--- NOTE | 2025-02-06 06:45 | DSE_ITS ---
Date of service: 02/02/25 Time of Service: 10:00 DS: Diagnosis Discharge Diagnosis (1) Abscess, neck: Status: Acute Discharge Plan Disposition Patient Disposition: Home Condition: Improving Discharge Details Reason For Visit: Right Posterior Neck Superficial Abscess Admit Date/Time: 01/30/25 15:34 Admit Provider: Reggie Troncoso Attending Provider: Reggie Troncoso Primary Care Provider: Adilson Montejo Hospital Course Hospital Course: This is a 50 year old male patient with past medical history of substance abuse, presented to the [facility] ED with 3 days of posterior neck swelling and severe pain. CT neck showed a large (3 ? 2.6 ? 4.5 cm) right posterior neck abscess extending through fascia to the underlying muscle. In the ED, he underwent ultrasound- guided I&D, producing a small amount of purulent drainage. Vancomycin was initiated. Admission labs showed leukocytosis (WBC 19.25), mild anemia, and mild hypo kalemia. Blood and wound cultures were obtained. Urine was positive for cocaine. The patient went to the OR and had I &D by surgery. During hospitalization, the patient remained hemodynamically stable and afebrile. Leukocytosis gradually improved (WBC 11.97 by 02/01). Pain resolved. Wound continued to drain minimally with daily dressing changes. Wound cultures - MRSA; sensitivites pending at discharge. Surgery recommendation was the patient have someone perform daily wound packing, and follow strict wound care instructions. Signs of infection were reviewed with the patient, who verbalized understanding. Outpatient surgical follow-up was arranged for the following week. CONDITION AT DISCHARGE Afebrile, hemodynamically stable Pain resolved Wound clean with improving drainage Able to perform dressing changes with assistance from mother Tolerating diet, ambulatory Medically stable for discharge home DISCHARGE MEDICATIONS Linezolid 600 mg twice a day for 7 days Analgesics: acetaminophen or ibuprofen PRN Home Meds and New Rx's Prescriptions: New linezolid 600 mg tablet 600 mg PO BID Qty: 14 0RF ibuprofen 800 mg tablet 800 mg PO TID PRNQty: 30 0RF Discharge Instructions Instructions: Methicillin-resistant Staphylococcus aureus (MRSA), Abscess Incision and Drainage (DC), Linezolid Additional Instructions: Take Linezolid 600 mg twice a day. Ibuprofen for pain Daily Dressing Change: You will need to change your packing and dressing every day. Showering: You may shower after removing the dressing, allowing warm soapy water to gently clean the area. Repacking and Dressing: After showering, the wound should be repacked and covered with a new secondary dressing. Avoid friction or pressure to wound area. Signs of Infection: It's critical to monitor for signs of infection, including: * Fever, chills, or sweating * Redness, soreness, or swelling around the wound * New or increased pain * Odor from wound * Changes in drainage (color, amount, or consistency) When to Seek Help: If any of the above symptoms occur, you should contact the surgery office, reach out to your primary care provider, or go to the ED. Follow-up: Follow up with the surgical office next week for a wound check. Follow up with PCP. Stand Alone Forms: Portal Information, Nursing Discharge Form Referrals: Adilson Montejo [Primary Care Provider, Medicine] Referral Note: 1 week post hospitalization for abscess on posterior neck (MRSA) discharged with Linezolid for 7d. PCP office will call to set up a follow up appointment. If you don't hear from them, please give them a call. Afshin Du MD [ [facility] STAFF PHYSICIAN, Surgery] Referral Note: 1 week post hospitalization for MRSA abscess posterior neck - dc w Linezolid x 7d. Office will give you a call to set up a follow up appointment. Activity:: Activity as Tolerated Equipment/Supplies:: No Equipment Needed Diet:: As Tolerated Discharge Orders Discharge Orders: Discharge Order (Routine); Ordered 02/02/25 Ordered By: Leslie Ortiz Discharge Data Discharge Date/Time-TO BE ENTERED AT DEPARTURE: 02/02/25 12:01 DS: Summary Time Spent with Patient providing and/or coordinating discharge services: Greater than 30 minutes Status at Discharge Functional status at discharge: independent ambulation Overall status at discharge: patient is progressing back to baseline Mental Status: mental status grossly normal Speech and Movement: speech and movement normal Mood: congruent mood Affect: normal affect Exam Const General: cooperative and no acute distress HENMT Mouth: moist mucous membranes Eyes Conjunctivae: normal conjunctivae Sclera: normal sclerae Neck Neck: full ROM Resp Auscultation: clear to auscultation bilaterally, no rales, no rhonchi and no wheezes Cardio Rate: regular rate and not tachycardic Rhythm: regular rhythm GI Palpation: soft, not firm, no guarding, no masses, not rigid and nontender Skin Other: Large abscess posterior right neck draining some pus; packed. Multiple excoriations/superficial ulcers on his hands Neuro General: patient alert, patient awake and tone normal Extrem General: no edema Psych Mental Status: mental status grossly normal Speech and Movement: speech and movement normal Mood: congruent mood Affect: normal affect DS: Data Vitals/I&O Vitals and I&O: Vital Signs Temperature 36.2 C L 02/01/25 23:33 Temperature Source Temporal Artery Scan 02/01/25 23:33 Pulse 72 02/01/25 23:33 Pulse Rhythm Regular 01/30/25 16:36 Pulse 74 02/01/25 15:51 Respiratory Rate 17 02/01/25 23:33 Respiratory Effort Normal, Non-Labored 01/30/25 16:36 Respiratory Depth Normal 01/30/25 16:36 Respiratory Pattern Normal 01/30/25 16:36 Blood Pressure 149/82 H 02/01/25 23:33 Blood Pressure Mean 104 02/01/25 23:33 Blood Pressure Position Sitting 01/30/25 13:10 Pulse Oximetry 95 02/01/25 23:33 Respiratory End-tidal CO2 49 02/01/25 15:51 Oxygen Delivery Method Room Air 02/01/25 23:33 Oxygen Flow Rate 0 02/01/25 23:33 Pain Level 0 02/02/25 12:18 Comment pt refused 3 am vitals...nurse notified 02/02/25 03:16 Data Completed and Pending Pending Labs at Discharge: 01/30/25 01/30/25 01/31/25 13:54 14:55 04:00 WBC 19.25 H RBC 4.71 Hgb 12.7 L Hct 38.8 L MCV 82 MCH 27.0 MCHC 32.7 RDW 14.0 Plt Count 353 MPV 8.9 Immature Gran % 0.4 Neutrophils % 77.9 Lymphocytes % 12.1 Monocytes % 7.4 Eosinophils % 1.8 Basophils % 0.4 Nucleated RBC % 0.0 Absolute Neutrophils 15.00 H Absolute Lymphocytes 2.33 Absolute Monocytes 1.42 H Absolute Eosinophils 0.35 Absolute Basophils 0.08 Sodium 142 Potassium 3.4 L Chloride 106 Carbon Dioxide 26.7 Anion Gap 9.3 BUN 16 Creatinine 0.7 L Est GFR (CKD-EPI 2020) 114.63 Glucose 131 H Calcium 9.3 Magnesium Total Bilirubin 0.60 AST 17 ALT 14 Alkaline Phosphatase 80 C-Reactive Protein Total Protein 7.4 Albumin 4.5 Vancomycin Trough Random Vancomycin 4.2 Urine Opiates Screen Negative Urine Methadone Screen Negative Ur Barbiturates Screen Negative Ur Tricyclics Screen Negative Ur Amphetamines Screen Negative U Benzodiazepines Scrn Negative Urine Cocaine Screen Positive A U Cannabinoids Screen Negative 01/31/25 01/31/25 01/31/25 09:11 09:11 09:11 WBC 14.29 H RBC 4.44 Hgb 12.1 L Hct 36.6 L MCV 82 MCH 27.3 MCHC 33.1 RDW 13.7 Plt Count 329 MPV 8.8 Immature Gran % 0.3 Neutrophils % 67.4 Lymphocytes % 19.0 Monocytes % 9.9 Eosinophils % 3.0 Basophils % 0.4 Nucleated RBC % 0.0 Absolute Neutrophils 9.63 H Absolute Lymphocytes 2.72 Absolute Monocytes 1.41 H Absolute Eosinophils 0.43 Absolute Basophils 0.06 Sodium 139 Cancelled Potassium 3.8 Cancelled Chloride 107 Carbon Dioxide Anion Gap BUN Creatinine Est GFR (CKD-EPI 2020) Glucose Calcium Magnesium Total Bilirubin AST ALT Alkaline Phosphatase C-Reactive Protein Total Protein Albumin Vancomycin Trough Random Vancomycin Urine Opiates Screen Urine Methadone Screen Ur Barbiturates Screen Ur Tricyclics Screen Ur Amphetamines Screen U Benzodiazepines Scrn Urine Cocaine Screen U Cannabinoids Screen 01/31/25 01/31/25 01/31/25 09:11 09:11 09:11 WBC RBC Hgb Hct MCV MCH MCHC RDW Plt Count MPV Immature Gran % Neutrophils % Lymphocytes % Monocytes % Eosinophils % Basophils % Nucleated RBC % Absolute Neutrophils Absolute Lymphocytes Absolute Monocytes Absolute Eosinophils Absolute Basophils Sodium Potassium Chloride Cancelled Carbon Dioxide 24.7 Cancelled Anion Gap 7.3 Cancelled BUN 14 Creatinine Est GFR (CKD-EPI 2020) Glucose Calcium Magnesium Total Bilirubin AST ALT Alkaline Phosphatase C-Reactive Protein Total Protein Albumin Vancomycin Trough Random Vancomycin Urine Opiates Screen Urine Methadone Screen Ur Barbiturates Screen Ur Tricyclics Screen Ur Amphetamines Screen U Benzodiazepines Scrn Urine Cocaine Screen U Cannabinoids Screen 01/31/25 01/31/25 01/31/25 09:11 09:11 09:11 WBC RBC Hgb Hct MCV MCH MCHC RDW Plt Count MPV Immature Gran % Neutrophils % Lymphocytes % Monocytes % Eosinophils % Basophils % Nucleated RBC % Absolute Neutrophils Absolute Lymphocytes Absolute Monocytes Absolute Eosinophils Absolute Basophils Sodium Potassium Chloride Carbon Dioxide Anion Gap BUN Cancelled Creatinine 0.8 Cancelled Est GFR (CKD-EPI 2020) 101.50 Cancelled Glucose 100 Calcium Magnesium Total Bilirubin AST ALT Alkaline Phosphatase C-Reactive Protein Total Protein Albumin Vancomycin Trough Random Vancomycin Urine Opiates Screen Urine Methadone Screen Ur Barbiturates Screen Ur Tricyclics Screen Ur Amphetamines Screen U Benzodiazepines Scrn Urine Cocaine Screen U Cannabinoids Screen 01/31/25 01/31/25 01/31/25 09:11 09:11 09:11 WBC RBC Hgb Hct MCV MCH MCHC RDW Plt Count MPV Immature Gran % Neutrophils % Lymphocytes % Monocytes % Eosinophils % Basophils % Nucleated RBC % Absolute Neutrophils Absolute Lymphocytes Absolute Monocytes Absolute Eosinophils Absolute Basophils Sodium Potassium Chloride Carbon Dioxide Anion Gap BUN Creatinine Est GFR (CKD-EPI 2020) Glucose Cancelled Calcium 8.5 Cancelled Magnesium Total Bilirubin 0.50 Cancelled AST 12 ALT Alkaline Phosphatase C-Reactive Protein Total Protein Albumin Vancomycin Trough Random Vancomycin Urine Opiates Screen Urine Methadone Screen Ur Barbiturates Screen Ur Tricyclics Screen Ur Amphetamines Screen U Benzodiazepines Scrn Urine Cocaine Screen U Cannabinoids Screen 01/31/25 01/31/25 01/31/25 09:11 09:11 09:11 WBC RBC Hgb Hct MCV MCH MCHC RDW Plt Count MPV Immature Gran % Neutrophils % Lymphocytes % Monocytes % Eosinophils % Basophils % Nucleated RBC % Absolute Neutrophils Absolute Lymphocytes Absolute Monocytes Absolute Eosinophils Absolute Basophils Sodium Potassium Chloride Carbon Dioxide Anion Gap BUN Creatinine Est GFR (CKD-EPI 2020) Glucose Calcium Magnesium Total Bilirubin AST Cancelled ALT 9 L Cancelled Alkaline Phosphatase 66 Cancelled C-Reactive Protein 4.07 H Total Protein 6.2 Albumin Vancomycin Trough Random Vancomycin Urine Opiates Screen Urine Methadone Screen Ur Barbiturates Screen Ur Tricyclics Screen Ur Amphetamines Screen U Benzodiazepines Scrn Urine Cocaine Screen U Cannabinoids Screen 01/31/25 01/31/25 02/01/25 09:11 09:11 06:43 WBC 12.37 H RBC 4.63 Hgb 12.6 L Hct 37.9 L MCV 82 MCH 27.2 MCHC 33.2 RDW 13.7 Plt Count 329 MPV 8.7 Immature Gran % 0.2 Neutrophils % 68.1 Lymphocytes % 17.0 Monocytes % 8.5 Eosinophils % 5.6 Basophils % 0.6 Nucleated RBC % 0.0 Absolute Neutrophils 8.42 H Absolute Lymphocytes 2.10 Absolute Monocytes 1.05 H Absolute Eosinophils 0.69 Absolute Basophils 0.07 Sodium 141 Potassium 4.4 Chloride 109 H Carbon Dioxide 25.7 Anion Gap 6.3 BUN 13 Creatinine 0.7 L Est GFR (CKD-EPI 2020) 126.73 Glucose 101 Calcium 9.0 Magnesium 1.9 Total Bilirubin AST ALT Alkaline Phosphatase C-Reactive Protein Total Protein Cancelled Albumin 3.7 Cancelled Vancomycin Trough 32.7 H* Random Vancomycin Urine Opiates Screen Urine Methadone Screen Ur Barbiturates Screen Ur Tricyclics Screen Ur Amphetamines Screen U Benzodiazepines Scrn Urine Cocaine Screen U Cannabinoids Screen 02/01/25 02/02/25 13:25 06:27 WBC 11.97 H RBC 4.61 Hgb 12.5 L Hct 38.2 L MCV 83 MCH 27.1 MCHC 32.7 RDW 13.6 Plt Count 366 MPV 9.1 Immature Gran % 0.5 Neutrophils % 67.5 Lymphocytes % 16.7 Monocytes % 8.1 Eosinophils % 6.4 Basophils % 0.8 Nucleated RBC % 0.0 Absolute Neutrophils 8.08 H Absolute Lymphocytes 2.00 Absolute Monocytes 0.97 H Absolute Eosinophils 0.77 H Absolute Basophils 0.10 Sodium 143 Potassium 4.2 Chloride 109 H Carbon Dioxide 24.3 Anion Gap 9.7 BUN 22 Creatinine 0.7 L Est GFR (CKD-EPI 2020) 114.62 Glucose 85 Calcium 8.8 Magnesium 1.8 Total Bilirubin AST ALT Alkaline Phosphatase C-Reactive Protein Total Protein Albumin Vancomycin Trough 11.6 H Random Vancomycin Urine Opiates Screen Urine Methadone Screen Ur Barbiturates Screen Ur Tricyclics Screen Ur Amphetamines Screen U Benzodiazepines Scrn Urine Cocaine Screen U Cannabinoids Screen Preliminary micro results at discharge 02/01/25 14:54 Neck - Right Surgical Culture - Preliminary Staph aureus, MRSA 02/01/25 14:54 Neck - Right Anaerobic Culture - Preliminary PFSH All Active Problems (Updated 02/03/25 @ 00:04 by DAREN MENDOZA) Marijuana abuse (Acute) Crack cocaine use (Acute) Nicotine addiction (Acute) Abscess, neck (Acute) Social History Smoking/Tobacco Use Status: Current every day Tobacco Type: cigarettes Years smoked: 30 Tobacco: How many years used: 30 Smoking risk assessment performed?: Yes Alcohol Intake: former Drug use: Occasionally Substance use type: marijuana and crack/cocaine Details: Reports last use of cocaine was a few days ago and marijuana was about 2 weeks ago Housing: other Time Spent with Patient Time Spent with Patient: 45-69 minutes Time was spent: preparing to see the patient(eg.review tests), ordering medications,tests, procedures, referring, communicating with other health medicare contact specialist, indepentently interpreting results, counseling the patient and care coordination
== END 2025-02-02 12:01 | disposition home or self-care (01) ==
LOC: ER 15:47 → MS 16:23
PROVIDERS: Surgery; Admitting Provider Family Medicine; Emergency Provider Student in an Organized Health Care Education/Training Program; PCP Family Medicine; Responsible Provider Nurse Practitioner Family; Visit Provider Family Medicine
PROC: (CPT 10061; principal; 2025-02-01 12:15)
DX: L02.11 Cutaneous abscess of neck (principal); F14.90 Cocaine use, unspecified, uncomplicated; F17.210 Nicotine dependence, cigarettes, uncomplicated; F12.10 Cannabis abuse, uncomplicated; D72.829 Elevated white blood cell count, unspecified; B95.62 Methicillin resistant Staphylococcus aureus infection as the cause of diseases classified elsewhere
CPT/HCPCS: 10061; 00123; 10060; 36415; 70491; 76536; 76942; 80048; 80053; 80307; 87040; 87077; 96365; 96366; 99285; 80202; 83735; 85025; 86140; 87070; 87075; 87186; 87205; 99222; 99231; 99239; G0378; J1100; J1171; J1885; J2003; J2004; J2060; J2405; J2704; J3010; J3373; J3490